=== PATIENT | female | born 1945 | race Caucasian/White ===

== ENCOUNTER → 2017-11-16 14:04 | Outpatient (CLI) | payer MEDICARE, OTHER, SELFPAY ==
[2017-11-16 15:54] LABS: Hematocrit 38.6 % (37-47); Hemoglobin 12.7 g/dl (12.0-15.0); Mean Corp Hgb Conc 32.9 g/gl (32-36); Mean Corpuscular Hgb 31.4 pg (27.0-32.0); Mean Corpuscular Volume 95.5 fL (81-99); Mean Platelet Vol. 9.7 fl (6.2-12.0); Platelet Count 234 K/mm3 (150-450); RBC Distribution Width CV 15.2 % (11.6-14.6); RBC Distribution Width SD 51.8 fl (35.1-43.9); Red Blood Count 4.04 M/mm3 (4.2-5.4); White Blood Count 5.3 K/mm3 (4.4-11.0)
[2017-11-16 15:55] LABS: Scan Indicated on CBC? Y/N NO
[2017-11-16 16:18] LABS: Anion Gap 5 (5-15); BUN 18 mg/dL (7-18); Calcium,Total 9.1 mg/dL (8.5-10.1); Chloride 106 mmol/L (98-107); EST Glomerular Filtration Rate 47 mL/min (>60); Est Glom Filt Rate - Afr Amer 57 mL/min (>60); Glucose 97 mg/dL (74-106); Sodium Level 143 mmol/L (136-145); Thyroid Stim Hormone (TSH) 0.19 uIU/mL (0.358-3.74)
== END ==
PROVIDERS: Family Provider Family Medicine; PCP Family Medicine; Visit Provider Internal Medicine Cardiovascular Disease
DX: R53.83 Other fatigue (principal); I47.1 Supraventricular tachycardia; I25.10 Atherosclerotic heart disease of native coronary artery without angina pectoris
CPT/HCPCS: 36415; 80048; 84443; 85027

== ENCOUNTER → 2017-12-08 13:52 | Outpatient (CLI) | payer MEDICARE, OTHER, SELFPAY ==
[2017-12-08 16:26] LABS: AST(SGOT) 18 U/L (15-37); Alanine Aminotransfer ALT/SGPT 15 U/L (13-56); Albumin, Serum 3.8 g/dL (3.2-5.0); Alkaline Phosphatase 110 U/L (45-117); Cholesterol 146 mg/dL (200); Globulin 3.8 g/dL (2.2-4.2); High Density Lipoprotein 49 mg/dL; Protein, Total 7.6 g/dL (6.4-8.2); Triglycerides 145 mg/dL; Very Low Density Lipoprotein 29 mg/dL (5-40)
== END ==
PROVIDERS: Family Provider Family Medicine; PCP Family Medicine; Visit Provider Internal Medicine Cardiovascular Disease
DX: I25.10 Atherosclerotic heart disease of native coronary artery without angina pectoris (principal)
CPT/HCPCS: 36415; 80061; 80076

== ENCOUNTER → 2017-12-24 15:36 | Outpatient (CLI) | payer MEDICARE, OTHER, SELFPAY ==
--- NOTE | 2017-12-24 15:36 | DT_ITS ---
This patient was seen during an EMR downtime December 20, 2017 - December 27, 2017. This patient may have a combination of paper and electronic documentation or all paper documentation. All documentation is viewable within the e-chart portion of [facility] for each patient visit.
[2017-12-28 16:58] LABS: T4 Total, Thyroxin 6.6 ug/dL (4.8-13.9); Thyroid Stim Hormone (TSH) 2.39 uIU/mL (0.358-3.74)
== END ==
PROVIDERS: Visit Provider Family Medicine
DX: E03.9 Hypothyroidism, unspecified (principal)
CPT/HCPCS: 36415; 84436; 84443; 84481

== ENCOUNTER → 2018-01-24 14:29 | Outpatient (CLI) | payer MEDICARE, OTHER, SELFPAY ==
[2018-01-24 16:36] LABS: Magnesium 1.7 mg/dL (1.6-2.6)
== END ==
PROVIDERS: Family Provider Family Medicine; PCP Family Medicine; Visit Provider Family Medicine
DX: R53.81 Other malaise (principal); R53.83 Other fatigue
CPT/HCPCS: 36415; 83735

== ENCOUNTER → 2018-04-21 16:53 | Outpatient (CLI) | payer MEDICARE, OTHER, SELFPAY ==
[2018-04-21 18:41] LABS: Ferritin 38 ng/mL (8-252); Thyroid Stim Hormone (TSH) 0.97 uIU/mL (0.358-3.74)
== END ==
PROVIDERS: Family Provider Family Medicine; PCP Family Medicine; Referring Provider Internal Medicine Endocrinology, Diabetes & Metabolism; Visit Provider Internal Medicine Endocrinology, Diabetes & Metabolism
DX: E03.8 Other specified hypothyroidism (principal); D50.9 Iron deficiency anemia, unspecified
CPT/HCPCS: 36415; 82728; 84443

== ENCOUNTER → 2018-06-17 12:50 | Outpatient (CLI) | payer MEDICARE, OTHER, SELFPAY ==
[2018-04-29 15:07] VITALS: BMI 43.0
--- NOTE | 2018-06-17 12:52 | RAD_ITS ---
STUDY: X-RAY - LEFT KNEE REASON FOR EXAM: Female, 72 years old. Knee pain TECHNIQUE: 4 view(s) of the knee. COMPARISON: None. FINDINGS: Normal visualized distal femur. Normal visualized proximal tibia and fibula. Normal proximal tibiofibular articulation. Moderate to severe nonuniform joint space narrowing with spur formation involving the medial compartment of the knee. Similar change, to a lesser degree, in the lateral and patellofemoral compartments. There is mild lateral subluxation of the femoral tibial joint. There is a trace amount of knee joint fluid. The soft tissue structures are unremarkable. RAD/Knee 4 or More Views IMPRESSION: Moderate to severe tricompartmental osteoarthritis of the left knee with a medial compartment predominance. Electronically Signed: Cruz Andrew MD at 3:58 EST Tel , Service support ,
--- NOTE | 2018-06-17 12:54 | RAD_ITS ---
STUDY: X-RAY - RIGHT KNEE REASON FOR EXAM: Female, 72 years old. Bilateral knee pain. TECHNIQUE: 5 view(s) of the knee with weightbearing. COMPARISON: None. FINDINGS: Alignment is normal. No fracture or dislocation. Severe medial joint space narrowing and small marginal osteophytes. Minimal marginal osteophytes lateral compartment. Minimal lateral subluxation of the patella with patellofemoral joint space narrowing and lateral marginal osteophytes. The soft tissue structures are unremarkable. RAD/Knee 4 or More Views IMPRESSION: Tricompartmental degenerative changes of the knee with most prominent involvement of the medial compartment and patellofemoral joint. Electronically Signed: Dash Rodriguez MD at 0:58 EST , Service support ,
--- OUTSIDE RECORDS SUMMARY | 2018-08-12 11:44 | XMS RPT_ITS ---
:1945 Author Organization OHIP Support Name Relationship Address Phone MARY JO MONROE Unavailable [address] + [place] [address] R Unavailable Unavailable Unavailable BARCMARY JO Unavailable [address] + [place] [address] R Unavailable Unavailable Unavailable MARY JO MONROE Unavailable [address] + [place] [address] R Unavailable Unavailable Unavailable BARCMARY JO HUGHES Unavailable [address] + [place] [address] R Unavailable Unavailable Unavailable MARY JO MONROE Unavailable [address] + [place] [address] R Unavailable Unavailable Unavailable MARY JO MONROE Unavailable [address] + [place] [address] R Unavailable Unavailable Unavailable MARY JO MONROE Unavailable [address] + [place] [address] R Unavailable Unavailable Unavailable BARCMARY JO HUGHES Unavailable [address] + [place] [address] R Unavailable Unavailable Unavailable MARY JO MONROE Unavailable [address] + [place] [address] R Unavailable Unavailable Unavailable MARY JO MONROE Unavailable [address] + [place] [address] R Unavailable Unavailable Unavailable MARY JO MONROE Unavailable [address] + [place] [address] R Unavailable Unavailable Unavailable MARY JO MONROE Unavailable [address] + [place] [address] R Unavailable Unavailable Unavailable MARY JO MONROE Unavailable [address] + [place] [address] R Unavailable Unavailable Unavailable BARCMARY JO HUGHES Unavailable [address] + [place] [address] R Unavailable Unavailable Unavailable MARY JO MONROE Unavailable [address] + [place] [address] R Unavailable Unavailable Unavailable MARY JO MONROE Unavailable [address] + [place] [address] R Unavailable Unavailable Unavailable Care Team Providers Name Role Phone Mary Jo Morgan Attending Unavailable Jolliff, Marcela Referring Unavailable Jolliff, Marcela Primary Care Unavailable Mary Jo Morgan Attending Unavailable Jolliff, Marcela Primary Care Unavailable Moodispaw, Rashaad Attending Unavailable Mood[place], Rashaad Attending Unavailable [place], Rashaad Referring Unavailable Jolliff, Marcela Primary Care Unavailable [place], Rashaad Attending Unavailable Jolliff, Marcela Referring Unavailable Osullivan, Amparo Attending Unavailable Mood[place], Rashaad Attending Unavailable [place], Rashaad Referring Unavailable Jolliff, Marcela Primary Care Unavailable [place], Rashaad Attending Unavailable Jolliff, Marcela Referring Unavailable Mood[place], Rashaad Attending Unavailable [place], Rashaad Referring Unavailable Jolliff, Marcela Primary Care Unavailable Jolliff, Marcela Attending Unavailable Jolliff, Marcela Attending Unavailable Jolliff, Marcela Primary Care Unavailable Moodisp[place], Rashaad Attending Unavailable Korableva, Lori Attending Unavailable Korableva, Lori Referring Unavailable Jolliff, Marcela Primary Care Unavailable Moodispaw, Rashaad Attending Unavailable Jolliff, Marcela Referring Unavailable Wayt, Venkat Attending Unavailable Jolliff, Marcela Referring Unavailable Wayt, Venkat Attending Unavailable Wayt, Venkat Referring Unavailable Jolliff, Marcela Primary Care Unavailable PROBLEMS PROBLEMS DATE TYPE CONDITION / CODE ATTENDING STATUS SOURCE 06/17/2018 Unknown M25.562 - Pain in left WaytVenkat Active [place] knee / M25.562(ICD-10) [facility] 04/21/2018 Unknown E03.8 - Other Korableva, Active [place] specified [facility] hypothyroidism / Hospital E03.8(ICD-10) Repository 04/21/2018 Unknown D50.9 - Iron Korableva, Active [place] deficiency anemia, [facility] unspecified / Hospital D50.9(ICD-10) Repository 01/24/2018 Unknown R53.81 - Other malaise Marcela Torres Active [place] / R53.81(ICD-10) [facility] Hospital Repository 01/24/2018 Unknown R53.83 - Other fatigue Marcela Torres Active [place] / R53.83(ICD-10) [facility] Hospital Repository 01/13/2018 Unknown E03.9 - Marcela Torres Active [place] Hypothyroidism, [facility] unspecified / Hospital E03.9(ICD-10) Repository 12/08/2017 Unknown I25.10 - Moodispaw, Active [place] Atherosclerotic heart [facility] disease of [place] [facility] coronary artery Repository without angina pectoris / I25.10(ICD-10) 12/03/2017 Unknown I47.1 - Moodispaw, Active [place] Supraventricular [facility] tachycardia / Hospital I47.1(ICD-10) Repository 12/03/2017 Unknown I25.2 - Old myocardial Moodispaw, Active [place] infarction / [facility] I25.2(ICD-10) Hospital Repository 12/03/2017 Unknown Z95.5 - Presence of Moodispaw, Active [place] coronary angioplasty [facility] implant and graft / Hospital Z95.5(ICD-10) Repository 12/03/2017 Unknown I10 - Essential Moodispaw, Active [place] (primary) hypertension [facility] / I10(ICD-10) Hospital Repository 09/09/2017 Unknown R07.9 - Chest pain, Roof, Mary Jo Reed Active [place] unspecified / Community R07.9(ICD-10) Hospital Repository 09/09/2017 Unknown R00.2 - Palpitations / Roof, Mary Jo H Active [place] R00.2(ICD-10) [facility] Hospital Repository PROCEDURES PROCEDURES No Procedure Records FoundRESULTS RESULTS ORTHOPEDIC VISIT Observed: 06/20/2018 Status: F Source: [place] REPORT 3:54 PM [facility] [place] REPOSITORY [facility] [address] [address] OFFICE VISIT Date of Service: 06/17/18 MR#: [id number] Acct: [id number] Name: ERIN CASTILLO Rep #: [id number] : 1945 Provider: MAYA Castillo Age/Sex: 72/F Location: [facility] [place] Status: Signed Intake Intake Visit Reasons: LEFT KNEE Allergies iodine Allergy (Verified 04/29/18 15:07) Unknown naproxen sodium [From Aleve] Allergy (Verified 04/29/18 15:07) Unknown oxytetracycline [From Terramycin] Allergy (Verified 04/29/18 15:07) Unknown oxytetracycline HCl [From Terramycin] Allergy (Verified 04/29/18 15:07) Unknown Sulfa (Sulfonamide Antibiotics) Allergy (Verified 04/29/18 15:07) Unknown Medications ALPRAZolam [Xanax] 0.25 mg PO BID PRN PRN 05/11/13 [History Confirmed 04/29/18] Multivitamins,Therapeutic [Multivitamin] 1 tab PO DAILY 05/11/13 [History Confirmed 04/29/18] Zolpidem Tartrate [Ambien] 10 mg PO QHS 10/29/14 [History Confirmed 04/29/18] lansoprazole 30 mg capsule,delayed release 30 mg PO DAILY #90 cap 08/16/17 [Rx Confirmed 04/29/18] furosemide 20 mg tablet 20 mg PO DAILY PRN 09/07/17 [History Confirmed 04/29/18] isosorbide mononitrate ER 30 mg tablet,extended release 24 hr 30 mg PO .COMPLEX 09/07/17 [History Confirmed 04/29/18] desvenlafaxine succinate ER 100 mg tablet,extended release 24 hr 100 mg PO QDAY 11/18/17 [History Confirmed 04/29/18] hydrochlorothiazide 25 mg tablet 25 mg PO DAILY #90 tab 12/14/17 [Rx Confirmed 04/29/18] potassium chloride ER 20 mEq tablet,extended release(part/cryst) 20 meq PO QDAY #90 tab 01/20/18 [Rx Confirmed 04/29/18] metoprolol tartrate 50 mg tablet 50 mg PO BID #180 tab 02/14/18 [Rx Confirmed 04/29/18] simvastatin 40 mg tablet 40 mg PO QHS #90 tab 03/08/18 [Rx Confirmed 04/29/18] niacin ER 1,000 mg tablet,extended release 24 hr 1,000 mg PO QHS #30 tab 03/31/18 [Rx Confirmed 04/29/18] ascorbic acid (vitamin C) 500 mg tablet 500 mg PO DAILY 04/29/18 [History Confirmed 04/29/18] ferrous sulfate ER 142 mg (45 mg iron) tablet,extended release 300 mg PO DAILY tab 04/29/18 [History Confirmed 04/29/18] nitroglycerin 0.4 mg sublingual tablet 0.4 mg SUBLINGUAL Q5M PRN #25 tab 04/29/18 [Rx Confirmed 04/29/18] levothyroxine 50 mcg tablet 50 mcg PO DAILY 05/26/18 [History] apixaban 5 mg tablet 5 mg PO BID 06/02/18 [History] PFSH Medical History Hypertension (Chronic) Long-term use of high-risk medication (Chronic) Chest pain (Acute) History of myocardial infarction (Chronic) Paroxysmal atrial tachycardia (Chronic) Supraventricular tachycardia (Chronic) Hyperlipidemia (Chronic) Atherosclerotic heart disease of [place] coronary artery without angina pectoris (Chronic) Depression (Acute) Hypothyroidism (Acute) History of hysterectomy (Resolved) History of left heart catheterization (Resolved) Surgical History Presence of stent in coronary artery (Chronic) Postsurgical percutaneous transluminal coronary angioplasty (PTCA) status (Chronic) History of laparoscopic cholecystectomy (Resolved) History of radiofrequency ablation (RFA) procedure for cardiac arrhythmia (Resolved 10/2004) History of tonsillectomy (Resolved) Family History Father Myocardial infarction CAD (coronary artery disease) Mother Cancer Myocardial infarction Sister , age 58 of massive [place] CAD (coronary artery disease) Sudden cardiac Myocardial infarction Sister CAD (coronary artery disease) history of CABG Social History Smoking Status: Never smoker alcohol intake: never substance use type: does not use HPI LEFT KNEE: Details: ERIN CASTILLO is a 72 year old F here today for bilateral knee pain, left greater than right. She has seen Dr Dugan in the past who did a steroid injection and referred her to [facility] for a TKA however she began with cardiac issues and due to her AFIB her surgery was cancelled. She has not returned to [facility] main for any knee related visits. 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 She has been avoiding any situation with excessive walking and just recently shopped in a big store for about a half hour and had discomfort greater than normal that evening. Denies numbness, tingling or other associated symptoms. Ortho Exam Right Knee Swelling: No Homans Sign: No Knee ROM: Yes ROM-Extension -20 to 0 (roughly 5 degrees lax), Yes ROM-Flexion 0-140 Examination: Yes Lat jt line tenderness, Yes Med jt line tenderness, Yes Crepitus, Yes Pain with flexion, No Pain with extention, Yes La's Test Stability: NML: Anterior Drawer, NML: Valgus 30, NML: Varus 30 Patella Grind: Yes KNEE: Upon examination of right knee, patient has mild laxity and slight joint space opening medial/lateral with both valgus and varus stress. Left Knee Swelling: No Knee ROM: No ROM-Extension -20 to 0 (roughly 5 degrees lax), Yes ROM-Flexion 0-140 Examination: Yes med jt line tenderness, Yes Lat jt line tenderness, Yes Crepitus, Yes Pain with flexion, Yes La's Test, No TTP inf pole patella Stability: NML: Anterior Drawer Popliteal Adenopathy: No Patella Grind: Yes KNEE: Upon examination of left knee, patient has mild laxity and slight joint space opening medial/lateral with both valgus and varus stress. Assessment AND Plan Problems 1. Arthritis of both knees M17.0 Plan Obtained Xrays of patient's bilateral knees. Personally reviewed Xrays. There is no obvious fracture, dislocation, or lucency noted. She has evident moderate to severe tri-compartmental arthritis of the knee. Patient's examination along with her x-rays really point to tricompartmental arthritis is being the cause of her pain/problems. As bad as the x-rays look she really has very minimal pain she states but she does feel unstable in the knee with occasionally the knee giving out. She continues to be very active to help stabilize the knee. She does not wish to have injections as she really does not have a lot of pain at this time. The braces have helped her in the past providing support so she does not feel so unstable and at this time would like to go ahead and see about getting fitted for bilateral knee braces to be worn while she is physically active to help with instability. We discussed continual exercise at home which she is going to continue to do. She can ice, take anti-inflammatories, and use topical remedies for pain relief. She is to notify the office of any injuries, worsening pains, or any other new concerns or complaints. Orders Orders: Plan Detail Follow Up 3 Months Coding Level of Care Code Off vis,est,level 3 Diagnoses Arthritis of both knees M17.0 06/20/18 6340 <Electronically signed by Venkat TREJO> Date Venkat TREJO Cosigner Signature: Date (if applicable) CC: KNEE 4 OR MORE Observed: 06/17/2018 Status: F Source: [place] VIEWS 12:54 PM [facility] REPOSITORY [facility] Imaging Services [address] [place] [address] Knee 4 or More Views MR#: [id number] Acct: [id number] Name: ERIN CASTILLO Rep #: [id number] : 1945 F 72 From: Dash Rodriguez PCP: Marcela Torres MD Status: REG CLI Study: Knee 4 or More Views Date of Exam: 06/17/18 Exam# [id number] Ordering Dr: Venkat Castillo STUDY: X-RAY - RIGHT KNEE REASON FOR EXAM: Female, 72 years old. Bilateral knee pain. TECHNIQUE: 5 view(s) of the knee with weightbearing. COMPARISON: None. FINDINGS: Alignment is normal. No fracture or dislocation. Severe medial joint space narrowing and small marginal osteophytes. Minimal marginal osteophytes lateral compartment. Minimal lateral subluxation of the patella with patellofemoral joint space narrowing and lateral marginal osteophytes. The soft tissue structures are unremarkable. RAD/Knee 4 or More Views IMPRESSION: Tricompartmental degenerative changes of the knee with most prominent involvement of the medial compartment and patellofemoral joint. Electronically Signed: Dash Rodriguez MD at 0:58 EST , Service support , CC: MAYA Castillo; Marcela Torres MD Customer Experience Strategist: Signed KNEE 4 OR MORE Observed: 06/17/2018 Status: F Source: [place] VIEWS 12:52 PM [facility] REPOSITORY [facility] Imaging Services [address] [place] [address] Knee 4 or More Views MR#: [id number] Acct: [id number] Name: ERIN CASTILLO Rep #: [id number] : 1945 F 72 From: Cruz Andrew MD PCP: Marcela Torres MD Status: REG CLI Study: Knee 4 or More Views Date of Exam: 06/17/18 Exam# [id number] Ordering Dr: Venkat Castillo STUDY: X-RAY - LEFT KNEE REASON FOR EXAM: Female, 72 years old. Knee pain TECHNIQUE: 4 view(s) of the knee. COMPARISON: None. FINDINGS: Normal visualized distal femur. Normal visualized proximal tibia and fibula. Normal proximal tibiofibular articulation. Moderate to severe nonuniform joint space narrowing with spur formation involving the medial compartment of the knee. Similar change, to a lesser degree, in the lateral and patellofemoral compartments. There is mild lateral subluxation of the femoral tibial joint. There is a trace amount of knee joint fluid. The soft tissue structures are unremarkable. RAD/Knee 4 or More Views IMPRESSION: Moderate to severe tricompartmental osteoarthritis of the left knee with a medial compartment predominance. Electronically Signed: Cruz Andrew MD at 3:58 EST Tel , Service support , CC: MAYA Castillo; Marcela Torres MD Customer Experience Strategist: Signed CARDIOLOGY VISIT Observed: 04/29/2018 Status: F Source: [place] REPORT 4:15 PM [facility] REPOSITORY [facility] [address] [place] [address] OFFICE VISIT Date of Service: 04/29/18 MR#: [id number] Acct: [id number] Name: ERIN CASTILLO Rep #: [id number] : 1945 Provider: Rashaad Hall MD Age/Sex: 72/F [place] [facility] Status: Signed HPI HPI Details: ERIN CASTILLO, is a 72 F who presents to the office today for outpatient cardiovascular follow-up. She notes overall, at the present time, from a cardiovascular standpoint, she is doing well. She is not describing symptoms of ongoing angina pectoris. She has not had the use of nitroglycerin sublingual. She has not had any symptoms suspicious for acute CHF or pulmonary edema. She does note occasional palpitations and she occasionally takes an extra metoprolol tablet-PRN. She notes this works well for her additional palpitations and has allowed her not to have to present to the hospital for further evaluation. There is been no near syncope or syncope. She is currently seeing an psych arnp from the [place], [place] area. She states she still may need future knee replacement surgery although she is still considering the possibility of stem cell therapy. Intake Vital Signs04/29/18 Height 5 ft 3 in 04/29/18 Weight: 243 lb 04/29/18 Body Mass Index (BMI) 43.0 Intake Visit Reasons: 3 M FU rs from 03-25-18 Allergies iodine Allergy (Verified 04/29/18 15:07) Unknown naproxen sodium [From Aleve] Allergy (Verified 04/29/18 15:07) Unknown oxytetracycline [From Terramycin] Allergy (Verified 04/29/18 15:07) Unknown oxytetracycline HCl [From Terramycin] Allergy (Verified 04/29/18 15:07) Unknown Sulfa (Sulfonamide Antibiotics) Allergy (Verified 04/29/18 15:07) Unknown Medications ALPRAZolam [Xanax] 0.25 mg PO BID PRN PRN 05/11/13 [History Confirmed 04/29/18] Multivitamins,Therapeutic [Multivitamin] 1 tab PO DAILY 05/11/13 [History Confirmed 04/29/18] Zolpidem Tartrate [Ambien] 10 mg PO QHS 10/29/14 [History Confirmed 04/29/18] lansoprazole 30 mg capsule,delayed release 30 mg PO DAILY #90 cap 08/16/17 [Rx Confirmed 04/29/18] furosemide 20 mg tablet 20 mg PO DAILY PRN 09/07/17 [History Confirmed 04/29/18] isosorbide mononitrate ER 30 mg tablet,extended release 24 hr 30 mg PO .COMPLEX 09/07/17 [History Confirmed 04/29/18] apixaban 5 mg tablet 5 mg PO BID #60 tab 09/22/17 [Rx Confirmed 04/29/18] desvenlafaxine succinate ER 100 mg tablet,extended release 24 hr 100 mg PO QDAY 11/18/17 [History Confirmed 04/29/18] levothyroxine 75 mcg tablet 75 mcg PO .COMPLEX 11/18/17 [History Confirmed 04/29/18] hydrochlorothiazide 25 mg tablet 25 mg PO DAILY #90 tab 12/14/17 [Rx Confirmed 04/29/18] potassium chloride ER 20 mEq tablet,extended release(part/cryst) 20 meq PO QDAY #90 tab 01/20/18 [Rx Confirmed 04/29/18] metoprolol tartrate 50 mg tablet 50 mg PO BID #180 tab 02/14/18 [Rx Confirmed 04/29/18] simvastatin 40 mg tablet 40 mg PO QHS #90 tab 03/08/18 [Rx Confirmed 04/29/18] niacin ER 1,000 mg tablet,extended release 24 hr 1,000 mg PO QHS #30 tab 03/31/18 [Rx Confirmed 04/29/18] ascorbic acid (vitamin C) 500 mg tablet 500 mg PO DAILY 04/29/18 [History Confirmed 04/29/18] ferrous sulfate ER 142 mg (45 mg iron) tablet,extended release 300 mg PO DAILY tab 04/29/18 [History Confirmed 04/29/18] nitroglycerin 0.4 mg sublingual tablet 0.4 mg SUBLINGUAL Q5M PRN #25 tab 04/29/18 [Rx Confirmed 04/29/18] [facility] Medical History Hypertension (Chronic) Long-term use of high-risk medication (Chronic) Chest pain (Acute) History of myocardial infarction (Chronic) Paroxysmal atrial tachycardia (Chronic) Supraventricular tachycardia (Chronic) Hyperlipidemia (Chronic) Atherosclerotic heart disease of [place] coronary artery without angina pectoris (Chronic) Depression (Acute) Hypothyroidism (Acute) History of hysterectomy (Resolved) History of left heart catheterization (Resolved) Surgical History Presence of stent in coronary artery (Chronic) Postsurgical percutaneous transluminal coronary angioplasty (PTCA) status (Chronic) History of laparoscopic cholecystectomy (Resolved) History of radiofrequency ablation (RFA) procedure for cardiac arrhythmia (Resolved 10/2004) History of tonsillectomy (Resolved) Family History Father Myocardial infarction CAD (coronary artery disease) Mother Cancer Myocardial infarction Sister , age 58 of massive [place] CAD (coronary artery disease) Sudden cardiac Myocardial infarction Sister CAD (coronary artery disease) history of CABG Social History Smoking Status: Never smoker alcohol intake: never substance use type: does not use ROS Const Const: Positive for fatigue (continues, improving); negative for weakness, weight gain, weight loss, frequent falls or excessive sweating Eyes Eyes: Negative for change in vision, blurry vision or transient loss of vision ENT ENT: Positive for balance problems (increased off balance; medication induced ambien); negative for dizziness Cardio Chest Pain: No Palpitations: Yes (occasional; brief duration) feels like its: fast Edema: None Muscle aches with walking: None Resp Respiratory: Negative for SOB with activity or SOB at rest GI GI: Negative vomiting or vomiting blood/hematemesis : Negative for hematuria Musc Musc: Positive for balance problems (increased off balance; medication induced ambien), muscle weakness (Bilat) and muscle aches/ myalgia (Lt knee pain); negative for joint pain Skin Skin: Negative non-healing lesions or rash Neuro Neuro: Negative for weakness, blurry vision, dizziness, lightheadedness, frequent falls or orthostatic symptoms Ajit Hematologic/Lymphatic: Negative for easy bleeding Endo Endo: Positive for fatigue (continues, improving); negative for excessive sweating Psych Psych: Negative for anxiety or depression Allergy Allergy/Immunology: Negative for hives, Negative for rash Cardiology Exam Const Appearance: cooperative, healthy appearing, comfortable, no acute distress, well developed and well groomed Nutritional Appearance: obese Orientation: alert, awake and oriented x3 Head Head: normal to inspection, normocephalic and atraumatic Ears: hearing grossly normal bilaterally Nose: external nose normal Face and Sinus: face symmetric Mouth: oral mucosae normal Teeth and gingiva: fair dentition Eyes Eyelids: eyelids normal Conjunctivae: conjunctivae normal Pupils: PERRL EOM: EOM intact bilaterally Neck Neck: normal visual inspection and full ROM Carotids: normal carotid upstroke Chest Chest inspection: normal inspection of the chest and symmetric chest movement Auscultation: Bilateral: Clear to Auscultation Cardio Rate: regular rate Rhythm: regular rhythm Heart sounds: S1 normal, S2 normal and positive S4 (LLSB systolic ); negative rub or gallop Murmur: Grade 2/6, mid systolic, LLSB and LVOT GI GI: obese, normal to inspection, bowel sounds present and soft Neuro General: alert, awake, oriented x3 and moves all extremities Skin Skin: no rashes or lesions noted Extremities Pulses: Normal: Right Radial Pulse, Left Radial Pulse Lower Extremity Edema: None: Bilateral Musculoskel Musculoskeletal: joint tenderness (knee) Psych Psychological: depressed Supplemental Info Her last transthoracic echocardiogram was on 04/13/2017. The results are as noted below. Interpretation Summary The study was technically difficult. Segmental dysfunction with preserved ejection fraction (see wall motion). The estimated ejection fraction is 60 %. The left atrium is mildly enlarged. Trivial mitral valve insufficiency. Trivial tricuspid valve insufficiency. Right ventricular systolic pressure estimated to be 27 mmHg. Transmitral diastolic flow velocities suggest diastolic dysfunction (pseudonormal pattern). Her last exercise tolerance test/imaging study was also performed on 04/13/2017. This was a pharmacologic stress nuclear imaging study. The nuclear image results are as noted below. Impression: 1. Rest and stress SPECT Cardiolite nuclear imaging demonstrating the appearance of relative uniform tracer uptake and myocardial perfusion appearing within normal limits. 2. The gated Cardiolite study reports an LVEF of 69%. Her last diagnostic cardiac catheterization was performed on 12/31/2015 at [facility]. The final impression is as noted below. Final impression: 1. Mild elevation of left ventricular diastolic pressure 2. Left ventricle: A. Normal left trigger size, wall motion, and systolic function B. Estimated LVEF of 60% 3. Left main coronary artery: A. Distal 10-25% eccentric appearing calcification and stenosis 4. Left anterior descending coronary artery: A. Proximal to mid to distal stented segment patent with minimal luminal irregularities 5. Left circumflex coronary artery: A. Proximal 25% eccentric appearing calcification with 25% eccentric appearing stenosis B. 2nd small OM demonstrating pre-bifurcation 75-95% appearing stenosis in the superior bifurcating [id number] proximal 50-75% appearing stenosis 6. Right coronary artery: A. Large dominant vessel B. Proximal to mid to towards distal stented segment patent with minimal luminal irregularities A previous Holter monitor from 01/08/2012 is as noted below. 24 HOUR HOLTER MONITOR There were 69,834 QRS complexes noted. The average heart rate was 49 beats per minute in sinus rhythm. Ventricular ectopic beats were noted comprising 0.6% of total QRS complexes. The minimum heart rate was 40 beats per minute recorded at 1:12 p.m. The maximum heart rate was 81 beats per minute recorded at 1:32 p.m. There were occasional short runs of supraventricular tachyarrhythmia noted, which were more atrial tachycardia beats. The longest was a 7 beat run with the fastest being 121 beats per minute. The patient kept a diary noting fatigue and weakness. The above correlated with sinus bradycardia only. CONCLUSION 24 hour Holter monitor demonstrating predominantly sinus bradycardia. Occasional premature atrial complex and ventricular complexes are noted. Her previous event monitor from August to September of this year demonstrated sinus rhythm with PACs, PVCs, and paroxysmal atrial fibrillation/flutter. Assessment AND Plan 1. Atherosclerosis of [place] coronary artery of [place] heart without angina pectoris I25.10 PTCA of the LAD in December 2007; PTCA/Stent of the prox LAD, mid LAD, diagonal 1 in January 2008; 08-01-2008 PTCA/stent to PDA, Cutting Balloon to LAD, PTCA with stent to RCA, cutting balloon to the distal stent LAD in July 2008 Plan At the present time she appears to be doing reasonably well with no acute symptoms with respect to her under coronary artery disease process. Thus she will continue risk factor modification and medical management 2. Presence of stent in coronary artery Z95.5 JCARLOS to LAD 02/2003; Cutting Balloon to OM and Circ 10/31/04; LHC 06/2005; December 2007; June 2008; IVUS of LAD 12/2007; PTCA of the LAD and intracoronary stent December 2007; PTCA of the LAD, proximal and mid, Diagonal1 with stent 02/14/08; 08/01/08 PTCA and stent to PDA, cutting balloon to distal stent of LAD, PTCA with stent to RCA; [facility] October 2009, 05/2011, April 2013, 12/31/15 Plan She has a history of previous multivessel PCI as noted above. Again she appears to be doing well at the present time. She will continue her medical therapy and follow-up 3. Paroxysmal atrial tachycardia I47.1 Plan She does have a history of previous PSVT/PAT. She is undergone ablative therapy in the past. She does have occasional palpitations and ectopy. She has done well with additional as needed beta-mili use. She will continue this approach for the time being. 4. Hyperlipidemia, unspecified hyperlipidemia type E78.5 Plan Her lipid labs from November of this year were reviewed. They appear to be under good control. Thus she will continue her current medical management and follow-up. 5. Hypertension, unspecified type I10 Plan Her blood pressure appears to be reasonably well-controlled at the present time. Again she will continue her medical therapy and follow-up. 6. Long-term use of high-risk medication Z79.899 Plan She will continue medical management. Over time her appropriate laboratory studies will be followed. Plan Detail Other Medications New: Refilled: Additional Comments Thank you for allowing me to participate in the care of your patient. Please don't hesitate to call if any issues arise. This note was generated using a voice recognition system and there may be incorrect words, spelling or punctuation that were not noted when reviewing the office note prior to saving. Follow Up 6 Months (PFM) Coding Level of Care Code Off vis,est,level 3 Diagnoses Atherosclerosis of [place] coronary artery of [place] heart without angina pectoris I25.10 [place] vs. transplanted heart: [place] heart Presence of stent in coronary artery Z95.5 Paroxysmal atrial tachycardia I47.1 Hyperlipidemia, unspecified hyperlipidemia type E78.5 Hyperlipidemia type: unspecified Hypertension, unspecified type I10 Hypertension type: unspecified Long-term use of high-risk medication Z79.899 Coding Level of Care Code Off vis,est,level 3 Diagnoses Atherosclerosis of [place] coronary artery of [place] heart without angina pectoris I25.10 [place] vs. transplanted heart: [place] heart Presence of stent in coronary artery Z95.5 Paroxysmal atrial tachycardia I47.1 Hyperlipidemia, unspecified hyperlipidemia type E78.5 Hyperlipidemia type: unspecified Hypertension, unspecified type I10 Hypertension type: unspecified Long-term use of high-risk medication Z79.899 04/29/18 1615 <Electronically signed by Rashaad Hall MD> Date Rashaad Hall MD Cosigner Signature: Date (if applicable) CC: Marcela Torres MD THYROID STIM HORMONE Collected: 04/21/2018 Status: F Source: [place] (TSH) 5:00 PM [facility] [place] REPOSITORY TYPE CODE TESTS RESULT OUT OF RANGE REFERENCE UNITS LAB L501.9520 0.358-3.74 uIU/mL Normal TSH 0.97 Performed By: #### L501.9520, L503.6550 #### [facility] [address] [place], [place], [address] FERRITIN Collected: 04/21/2018 Status: F Source: [place] 5:00 PM [facility] [place] REPOSITORY TYPE CODE TESTS RESULT OUT OF RANGE REFERENCE UNITS LAB L503.6550 8-252 ng/mL Normal FERRITIN 38 Performed By: #### L501.9520, L503.6550 #### [facility] [address] [place], [address] MAGNESIUM Collected: 01/24/2018 Status: F Source: [place] 2:33 PM [facility] [place] REPOSITORY TYPE CODE TESTS RESULT OUT OF RANGE REFERENCE UNITS LAB L501.5200 1.6-2.6 mg/dL Normal MG 1.7 Performed By: #### L501.5200 #### [facility] [address] [place], [address] DOWNTIME REPORT Observed: 01/06/2018 Status: F Source: [place] 1:40 PM [facility] Medical Records Department [address] [place] [address] Downtime Report MR#: [id number] Acct: [id number] Name: ERIN CASTILLO Rep #: [id number] : 1945 72 From: Georges Bernard PCP: Status: REG CLI This patient was seen during an EMR downtime December 20, 2017 - December 27, 2017. This patient may have a combination of paper and electronic documentation or all paper documentation. All documentation is viewable within the e-chart portion of August for each patient visit. FREE T3 Collected: 12/24/2017 Status: F Source: [place] 3:36 PM [facility] [place] REPOSITORY Order Comment: RESULT(S) PREVIOUSLY REPORTED ON MANUAL REQUISITION DURING DOWNTIME. TYPE CODE TESTS RESULT OUT OF RANGE REFERENCE UNITS LAB L501.82546 2.18-3.98 pg/mL Low FREE T3 2.0 Performed By: #### L501.23753, L501.9310, L501.9520 #### [facility] [address] [facility] [place], [address] T4 TOTAL, THYROXIN Collected: 12/24/2017 Status: F Source: [place] 3:36 PM [facility] [place] REPOSITORY Order Comment: RESULT(S) PREVIOUSLY REPORTED ON MANUAL REQUISITION DURING DOWNTIME. TYPE CODE TESTS RESULT OUT OF RANGE REFERENCE UNITS LAB L501.9310 4.8-13.9 ug/dL T4 Normal THYROXIN 6.6 Performed By: #### L501.14859, L501.9310, L501.9520 #### [facility] [address] [facility]. [place], [place], [address] THYROID STIM HORMONE Collected: 12/24/2017 Status: F Source: [place] (TSH) 3:36 PM [facility] [place] REPOSITORY Order Comment: RESULT(S) PREVIOUSLY REPORTED ON MANUAL REQUISITION DURING DOWNTIME. TYPE CODE TESTS RESULT OUT OF RANGE REFERENCE UNITS LAB L501.9520 0.358-3.74 uIU/mL Normal TSH 2.39 Performed By: #### L501.06813, L501.9310, L501.9520 #### [facility] [address] [facility] [place], [place], [address] LIVER PROFILE Collected: 12/08/2017 Status: F Source: [place] 2:00 PM [facility] [place] REPOSITORY TYPE CODE TESTS RESULT OUT OF RANGE REFERENCE UNITS LAB L501.1500 6.4-8.2 g/dL Normal T PROT 7.6 LAB L501.1800 3.2-5.0 g/dL Normal ALB 3.8 LAB L501.1950 2.2-4.2 g/dL Normal GLOB 3.8 LAB L501.4100 15-37 U/L Normal AST 18 LAB L501.4305 45-117 U/L Normal ALK P 110 LAB L501.4405 13-56 U/L Normal ALT 15 LAB L501.4600 0.20-1.00 mg/dL Normal T BILI 0.40 LAB L501.4700 0.00-0.30 mg/dL Normal D BILI 0.10 Performed By: #### L500.3400, L500.4100 #### [facility] [address] [place] [address], [id number] LIPID PROFILE Collected: 12/08/2017 Status: F Source: [place] 2:00 [facility] REPOSITORY TYPE CODE TESTS RESULT OUT OF RANGE REFERENCE UNITS LAB L501.4900 200 mg/dL Normal CHOL 146 Result Comment: <200 mg/dL Desirable 200-240 mg/dL Borderline >240 mg/dL High Risk LAB L501.5000 mg/dL Normal TRIG 145 Result Comment: The drugs N-Acetylcysteine and Metamizole may falsely depress this assay. Serum Triglycerides Reference Interval Normal <150 mg/dL Borderline high 150 - 199 mg/dL High 200 - 499 mg/dL Very High > or = 500 mg/dL LAB L501.6400 mg/dL Normal HDL 49 Result Comment: The drugs N-Acetylcysteine and Metamizole may falsely depress this assay. Reference Range HDL <40 mg/dL Low HDL Cholesterol HDL >or= 60 mg/dL High HDL Cholesterol LAB L501.6500 0-130 mg/dL Normal LDL 68 LAB L501.6600 5-40 mg/dL Normal VLDL 29 Performed By: #### L500.3400, L500.4100 #### [facility] [address] [place], [address] CARDIOLOGY VISIT Observed: 12/03/2017 Status: F Source: [place] REPORT 12:06 PM [facility] REPOSITORY [facility] [address] [place] [place] [address] OFFICE VISIT Date of Service: 12/03/17 MR#: [id number] Acct: [id number] Name: ERIN CASTILLO Rep #: [id number] : 1945 Provider: Rashaad Hall MD Age/Sex: 72/F Location: [facility] Status: Signed HPI HPI Details: ERIN CASTILLO, is a 72 F who presents to the office today for for outpatient cardiovascular follow-up of her history of CAD status post OK-remote status post PTCA/stent-remote, supraventricular tachydysrhythmia status post EPS/RFA at [facility], hyperlipidemia, and hypertension who presents for concerns of her underlying cardiac ectopy, feeling sluggish and fatigued, and need for upcoming knee stem cell therapy versus replacement therapy. She has undergone extensive noninvasive and invasive cardiovascular evaluation in the past. Most recently in October of this year she underwent an event monitor which demonstrated sinus rhythm with PACs PVCs and episodes compatible with atrial fibrillation/flutter. She has had rate control therapy adjustment and anticoagulant therapy. She states on her higher dose beta-blockers, add metoprolol tartrate 100 mg twice daily, she felt very tired and sluggish and fatigued. Thus she has decreased her morning dose down to 50 mg and her evening dose has remained at 100 mg. She still feels tired and sluggish and fatigued. She underwent laboratory profile on 11/16/2017 which demonstrated no evidence of ongoing anemia, electrolyte dysfunction, or renal dysfunction to explain her symptoms. It was noted her TSH level was low at 0.19. She has been evaluated by her primary care physician who has adjusted her thyroid supplement. She states she is pending a follow-up visit and a follow-up thyroid hormone level. She states she has not had any other issues with respect to ongoing chest discomfort suspicious for angina pectoris. She is not using nitroglycerin sublingual at this time. She has been no evidence of CHF or pulmonary edema. There has been no loss of consciousness. Intake Vital Signs12/03/17 Height 5 ft 3 in 12/03/17 Weight: 239 lb 12/03/17 Body Mass Index (BMI) 42.3 12/03/17 Blood Pressure 100/68 Intake Visit Reasons: 6 M FU Allergies iodine Allergy (Verified 12/03/17 10:14) Unknown naproxen sodium [From Aleve] Allergy (Verified 12/03/17 10:14) Unknown oxytetracycline [From Terramycin] Allergy (Verified 12/03/17 10:14) Unknown oxytetracycline HCl [From Terramycin] Allergy (Verified 12/03/17 10:14) Unknown Sulfa (Sulfonamide Antibiotics) Allergy (Verified 12/03/17 10:14) Unknown Medications ALPRAZolam [Xanax] 0.25 mg PO BID PRN PRN 05/11/13 [History Confirmed 12/03/17] Hydrochlorothiazide [Hctz] 25 mg PO DAILY 05/11/13 [History Confirmed 12/03/17] Multivitamins,Therapeutic [Multivitamin] 1 tab PO DAILY 05/11/13 [History Confirmed 12/03/17] Niacin SA [Niaspan] 1,000 mg PO QHS 05/11/13 [History Confirmed 12/03/17] Simvastatin [Zocor] 40 mg PO QHS 05/11/13 [History Confirmed 12/03/17] Zolpidem Tartrate [Ambien] 10 mg PO QHS 10/29/14 [History Confirmed 12/03/17] nitroglycerin 0.4 mg sublingual tablet 0.4 mg SUBLINGUAL Q5M PRN 06/30/17 [History Confirmed 12/03/17] potassium chloride ER 20 mEq tablet,extended release(part/cryst) 20 meq PO QDAY 06/30/17 [History Confirmed 12/03/17] lansoprazole 30 mg capsule,delayed release 30 mg PO DAILY #90 cap 08/16/17 [Rx Confirmed 12/03/17] furosemide 20 mg tablet 20 mg PO DAILY PRN 09/07/17 [History Confirmed 12/03/17] isosorbide mononitrate ER 30 mg tablet,extended release 24 hr 30 mg PO .COMPLEX 09/07/17 [History Confirmed 12/03/17] apixaban 5 mg tablet 5 mg PO BID #60 tab 09/22/17 [Rx Confirmed 12/03/17] desvenlafaxine succinate ER 100 mg tablet,extended release 24 hr 100 mg PO QDAY 11/18/17 [History Confirmed 12/03/17] levothyroxine 75 mcg tablet 75 mcg PO .COMPLEX 11/18/17 [History Confirmed 12/03/17] metoprolol tartrate 50 mg tablet 50 mg PO .COMPLEX 12/03/17 [History Confirmed 12/03/17] [facility] Medical History Presence of stent in coronary artery (Chronic) Hypertension (Chronic) Long-term use of high-risk medication (Chronic) Chest pain (Acute) History of myocardial infarction (Chronic) Paroxysmal atrial tachycardia (Chronic) Supraventricular tachycardia (Chronic) Hyperlipidemia (Chronic) Atherosclerotic heart disease of [place] coronary artery without angina pectoris (Chronic) Depression (Acute) Hypothyroidism (Acute) History of left heart catheterization (Resolved) Surgical History Postsurgical percutaneous transluminal coronary angioplasty (PTCA) status (Chronic) History of hysterectomy (Resolved) History of laparoscopic cholecystectomy (Resolved) History of radiofrequency ablation (RFA) procedure for cardiac arrhythmia (Resolved 10/2004) History of tonsillectomy (Resolved) Family History Father Myocardial infarction CAD (coronary artery disease) Mother Cancer Myocardial infarction Sister , age 58 of massive [place] CAD (coronary artery disease) Sudden cardiac Myocardial infarction Sister CAD (coronary artery disease) history of CABG Social History Smoking Status: Never smoker alcohol intake: never substance use type: does not use ROS Const Const: Positive for fatigue (very tired all of the time); negative for weakness, weight gain, weight loss, frequent falls or excessive sweating Eyes Eyes: Negative for change in vision, blurry vision or transient loss of vision ENT ENT: Positive for balance problems (unsteadiness with ambulation, knee replacment on hold; off balance); negative for dizziness Cardio Chest Pain: Yes Character: other (pressure) Onset: at rest Duration: minutes (20 minutes to an hour) Exacerbation: activity Palpitations: Yes (occasional) feels like its: fast, pounding, thumping Edema: Bilateral (slight) Muscle aches with walking: None Resp Respiratory: Positive for SOB with activity and SOB at rest Additional Details: occasional dry cough GI GI: Negative vomiting or vomiting blood/hematemesis : Negative for hematuria Musc Musc: Positive for balance problems (unsteadiness with ambulation, knee replacment on hold; off balance) and muscle weakness (with ambulation); negative for muscle aches/ myalgia or joint pain Skin Skin: Negative non-healing lesions or rash Neuro Neuro: Negative for weakness, blurry vision, dizziness, lightheadedness, frequent falls or orthostatic symptoms Ajit Hematologic/Lymphatic: Negative for easy bleeding Endo Endo: Positive for fatigue (very tired all of the time); negative for excessive sweating Psych Psych: Negative for anxiety or depression Allergy Allergy/Immunology: Negative for hives, Negative for rash Cardiology Exam Const Appearance: cooperative, healthy appearing, comfortable and no acute distress Nutritional Appearance: obese Orientation: alert, awake and oriented x3 Head Head: normal to inspection, normocephalic and atraumatic Ears: hearing grossly normal bilaterally Nose: external nose normal Face and Sinus: face symmetric Mouth: oral mucosae normal Teeth and gingiva: fair dentition Eyes Eyelids: eyelids normal Conjunctivae: conjunctivae normal Pupils: PERRL EOM: EOM intact bilaterally Neck Neck: normal visual inspection and full ROM Carotids: normal carotid upstroke Chest Chest inspection: normal inspection of the chest and symmetric chest movement Auscultation: Bilateral: Clear to Auscultation Cardio Rate: regular rate Rhythm: regular rhythm Heart sounds: S1 normal, S2 normal and positive S4 (LLSB systolic ); negative rub or gallop Murmur: Grade 2/6, mid systolic, LLSB and LVOT GI GI: obese, normal to inspection, soft, no hepatosplenomegaly and bowel sounds present Neuro General: alert, awake, oriented x3 and moves all extremities Skin Skin: no rashes or lesions noted Extremities Pulses: Normal: Right Radial Pulse, Left Radial Pulse Lower Extremity Edema: None: Bilateral Musculoskel Musculoskeletal: joint tenderness (knee) Psych Psychological: depressed Supplemental Info Her last transthoracic echocardiogram was on 04/13/2017. The results are as noted below. Interpretation Summary The study was technically difficult. Segmental dysfunction with preserved ejection fraction (see wall motion). The estimated ejection fraction is 60 %. The left atrium is mildly enlarged. Trivial mitral valve insufficiency. Trivial tricuspid valve insufficiency. Right ventricular systolic pressure estimated to be 27 mmHg. Transmitral diastolic flow velocities suggest diastolic dysfunction (pseudonormal pattern). Her last exercise tolerance test/imaging study was also performed on 04/13/2017. This was a pharmacologic stress nuclear imaging study. The nuclear image results are as noted below. Impression: 1. Rest and stress SPECT Cardiolite nuclear imaging demonstrating the appearance of relative uniform tracer uptake and myocardial perfusion appearing within normal limits. 2. The gated Cardiolite study reports an LVEF of 69%. Her last diagnostic cardiac catheterization was performed on 12/31/2015 at [facility]. The final impression is as noted below. Final impression: 1. Mild elevation of left ventricular diastolic pressure 2. Left ventricle: A. Normal left trigger size, wall motion, and systolic function B. Estimated LVEF of 60% 3. Left main coronary artery: A. Distal 10-25% eccentric appearing calcification and stenosis 4. Left anterior descending coronary artery: A. Proximal to mid to distal stented segment patent with minimal luminal irregularities 5. Left circumflex coronary artery: A. Proximal 25% eccentric appearing calcification with 25% eccentric appearing stenosis B. 2nd small OM demonstrating pre-bifurcation 75-95% appearing stenosis in the superior bifurcating [id number] proximal 50-75% appearing stenosis 6. Right coronary artery: A. Large dominant vessel B. Proximal to mid to towards distal stented segment patent with minimal luminal irregularities A previous Holter monitor from 01/08/2012 is as noted below. 24 HOUR HOLTER MONITOR There were 69,834 QRS complexes noted. The average heart rate was 49 beats per minute in sinus rhythm. Ventricular ectopic beats were noted comprising 0.6% of total QRS complexes. The minimum heart rate was 40 beats per minute recorded at 1:12 p.m. The maximum heart rate was 81 beats per minute recorded at 1:32 p.m. There were occasional short runs of supraventricular tachyarrhythmia noted, which were more atrial tachycardia beats. The longest was a 7 beat run with the fastest being 121 beats per minute. The patient kept a diary noting fatigue and weakness. The above correlated with sinus bradycardia only. CONCLUSION 24 hour Holter monitor demonstrating predominantly sinus bradycardia. Occasional premature atrial complex and ventricular complexes are noted. Her previous event monitor from August to September of this year demonstrated sinus rhythm with PACs, PVCs, and paroxysmal atrial fibrillation/flutter. Assessment AND Plan 1. Atherosclerosis of [place] coronary artery of [place] heart without angina pectoris I25.10 PTCA of the LAD in December 2007; PTCA/Stent of the prox LAD, mid LAD, diagonal 1 in January 2008; 08-01-2008 PTCA/stent to PDA, Cutting Balloon to LAD, PTCA with stent to RCA, cutting balloon to the distal stent LAD in July 2008 Plan At the present time she appears to be without any ongoing symptoms of angina pectoris. She will continue risk factor modification and medical management. It was not felt she required further cardiac diagnostic studies or therapeutic intervention at this time. Orders Orders: 2. Presence of stent in coronary artery Z95.5 JCARLOS to LAD 02/2003; Cutting Balloon to OM and Circ 10/31/04; [facility] 06/2005; December 2007; June 2008; IVUS of LAD 12/2007; PTCA of the LAD and intracoronary stent December 2007; PTCA of the LAD, proximal and mid, Diagonal1 with stent 02/14/08; 08/01/08 PTCA and stent to PDA, cutting balloon to distal stent of LAD, PTCA with stent to RCA; [facility] October 2009, 05/2011, April 2013, 12/31/15 Plan Again she has had a history of previous PCI as noted above. Her most recent noninvasive studies did not suggest ongoing myocardial ischemia. Thus she has not required repeat diagnostic cardiac catheterization since 2015. She will continue risk factor modification and medical management. Orders Orders: 3. Paroxysmal atrial tachycardia I47.1 Plan She has had a history of paroxysmal atrial tachycardia. She has undergone previous EPS/RFA at [facility]. She has been on medical management with beta blockers. Most recently it appears she has had evidence of paroxysmal atrial fibrillation/flutter. Today she had an ECG. She was in sinus rhythm/sinus bradycardia. Orders Orders: 4. Atrial fibrillation and flutter I48.91; I48.92 Plan She has been diagnosed with paroxysmal atrial fibrillation/flutter. Again today she appears remained in sinus rhythm/sinus bradycardia. Her graft she will continue rate control therapy. She will continue anticoagulant therapy. With respect her rate control therapy if there is concern that she is not tolerating her higher dose beta-blockers based on concerns of feeling tired and sluggish and fatigued she was asked to decrease her evening beta-mili dose down to 50 mg a day. She will need to monitor for any concerning symptoms from a cardiac standpoint. She was also asked to monitor for any obvious improvement in her underlying noncardiac related type symptoms, etc. She will continue anticoagulant therapy. If she does proceed with knee intervention this would need to be temporarily interrupted for any type of invasive or interventional or surgical procedure. 5. Hypertension, unspecified type I10 Plan Her blood pressure appears to be well controlled. She will continue medical management. She was asked to follow her heart rate and blood pressure at home. 6. HLD (hyperlipidemia) E78.5 Plan She will be asked to have fasting lipid and hepatic profile. Her medications can be adjusted as deemed appropriate. 7. Long-term use of high-risk medication Z79.899 Plan Based upon being on lipid-lowering medication she will have her lipid profile and hepatic profile checked. Also in the interim she was asked to follow-up with her primary care physician for reassessment of her thyroid function hormone levels. This may play a role in her symptoms with respect to her tiredness, sluggishness, and fatigue as well as any concerns of interaction with her cardiac ectopy or rhythm related issues. Plan Detail Other Orders Orders: Additional Comments The above was discussed with the patient with her spouse present. She was agreeable to this approach. In the interim she states she will be making her decision as to how she wants to proceed with her knee whether it be stem cell therapy or traditional knee replacement therapy. She was asked to notify the office as to how she is going to proceed. At the present time, with respect to the patient proceeding with additional knee evaluation and care, it does not appear from a cardiac standpoint, that she requires additional cardiac diagnostic studies or therapeutic intervention-other than adjustment of medications. She would need close monitoring of her cardiac rate rhythm and blood pressure during and following her procedures. An attempt should be made to avoid any significant fluctuations in her cardiac rate and/or rhythm and blood pressure during and following her procedures. Also an attempt should be made to avoid any significant volume overload via IV fluids, etc. during or following her procedures. She should continue her medications in and around the time of her procedures as best as tolerated. Her anticoagulant therapy would need to be interrupted approximately 4 days prior to her procedure and resumed as soon as possible following her procedure. She is at an increased risk for adverse cardiovascular events for noncardiac surgery based upon her previous cardiovascular history. However hopefully, based upon her ongoing clinical course without evidence of ongoing angina pectoris, CHF, or hemodynamically compromising cardiac dysrhythmias, etc. with appropriate monitoring and medication adjustment her risks can be kept at a minimum. Thank you for allowing me to participate in the care of your patient. Please don't hesitate to call if any issues arise. This note was generated using a voice recognition system and there may be incorrect words, spelling or punctuation that were not noted when reviewing the office note prior to saving. Follow Up 3 Months Coding Level of Care Code Off vis,est,level 4 Diagnoses Atherosclerosis of [place] coronary artery of [place] heart without angina pectoris I25.10 [place] vs. transplanted heart: [place] heart Presence of stent in coronary artery Z95.5 Paroxysmal atrial tachycardia I47.1 Atrial fibrillation and flutter I48.91; I48.92 Hypertension, unspecified type I10 Hypertension type: unspecified HLD (hyperlipidemia) E78.5 Long-term use of high-risk medication Z79.899 Coding Level of Care Code Off vis,est,level 4 Diagnoses Atherosclerosis of [place] coronary artery of [place] heart without angina pectoris I25.10 [place] vs. transplanted heart: [place] heart Presence of stent in coronary artery Z95.5 Paroxysmal atrial tachycardia I47.1 Atrial fibrillation and flutter I48.91; I48.92 Hypertension, unspecified type I10 Hypertension type: unspecified HLD (hyperlipidemia) E78.5 Long-term use of high-risk medication Z79.899 12/03/17 1206 <Electronically signed by Rashaad Hall MD> Date Rashaad Hall MD Cosigner Signature: Date (if applicable) CC: Marcela Torres MD 12 LEAD EKG PERFORMED Observed: 12/03/2017 Status: F Source: QUIANA BY BELTRAN 10:30 AM [place] [address] [place] [address] 12 Lead EKG performed by BELTRAN 12/03/17 1030 MR#: [id number] Acct: [id number] Name: ERIN CASTILLO Rep #: [id number] : 1945 72 From: Rashaad Hall MD Attending Dr: Rashaad Hall MD Status: DEP AMB Ordering Dr: Rashaad Hall MD Date: 12/03/17 Location: [facility] Sex: F C Admitted: BMS/12 Lead EKG performed by [facility] ECG Report Interpretation Sinus Bradycardia Low voltage QRSNegative T-waves - Consider Anterior-Lateral ischemia. Comment: C/W the ECG of 09/28/2016: No Significant ChangeElectronically signed on 12/03/2017 at 12:38 by Rashaad Hall 12/03/17 1239 Date Rashaad Hall MD CC: Marcela Torres MD Date Dictated: 12/03/17 1030 Date Transcribed: 12/03/17 103 Customer Experience Strategist: PM Signed CBC-COMPLETE BLOOD CNT Collected: 11/16/2017 Status: F Source: QUIANA NO DIFF 2:21 PM [facility] REPOSITORY TYPE CODE TESTS RESULT OUT OF RANGE REFERENCE UNITS LAB L100.1000 4.4-11.0 K/mm3 Normal WBC 5.3 LAB L100.1200 4.2-5.4 M/mm3 Low RBC 4.04 LAB L100.1300 12.0-15.0 g/dl Normal HGB 12.7 LAB L100.1400 37-47 % Normal HCT 38.6 LAB L100.1500 81-99 fL Normal MCV 95.5 LAB L100.1600 27.0-32.0 pg Normal MCH 31.4 LAB L100.1700 32-36 g/gl Normal MCHC 32.9 LAB L100.1810 11.6-14.6 % High RDW CV 15.2 LAB L100.1820 35.1-43.9 fl High RDW SD 51.8 LAB L100.1900 150-450 K/mm3 Normal PLT 234 LAB L100.2000 6.2-12.0 fl Normal MPV 9.7 Performed By: #### L100.0500 #### [facility] [address] [place], [place], [address] BASIC METABOLIC Collected: 11/16/2017 Status: F Source: QUIANA PROFILE (BMP) 2:21 PM [facility] REPOSITORY TYPE CODE TESTS RESULT OUT OF RANGE REFERENCE UNITS LAB L501.0100 74-106 mg/dL Normal GLU 97 Result Comment: Please note revised GLUCOSE reference range effective 2017. LAB L501.1000 7-18 mg/dL Normal BUN 18 LAB L501.1100 0.55-1.02 mg/dL High CREAT,SERUM 1.20 Result Comment: The validity of the calculated GFR AND GFRAA in patients over 70 years has not been determined. Clinical correlation is essential. LAB L501.1110 >60 mL/min Low EST GFR 47 Result Comment: Non- GFR Calc LAB L501.1115 >60 mL/min Low EST GFR - AA 57 Result Comment: GFR Calc LAB L501.1300 10-20 RATIO Normal BUN/CRE 15.0 LAB L501.2200 8.5-10.1 mg/dL CA Normal 9.1 LAB L501.5300 136-145 mmol/L NA Normal 143 LAB L501.5600 3.5-5.1 mmol/L K Normal 4.0 LAB L501.5900 98-107 mmol/L CL Normal 106 LAB L501.6100 21.0-32.0 mmol/L Normal CO2 32.0 LAB L501.6200 5-15 Normal GAP 5 Performed By: #### L500.2500, L501.9520 #### [facility] [address] [place] [place], [place], [address] THYROID STIM HORMONE Collected: 11/16/2017 Status: F Source: QUIANA (TSH) 2:21 PM [facility] REPOSITORY TYPE CODE TESTS RESULT OUT OF RANGE REFERENCE UNITS LAB L501.9520 0.358-3.74 uIU/mL Low TSH 0.19 Performed By: #### L500.2500, L501.9520 #### [facility] [address] [place], [address] CARDIOLOGY VISIT Observed: 09/08/2017 Status: F Source: QUIANA REPORT 6:00 PM [facility] REPOSITORY [facility] [address] [place] [address] OFFICE VISIT Date of Service: 09/07/17 MR#: [id number] Acct: [id number] Name: ERIN CASTILLO Rep #: [id number] : 1945 Provider: KVNG Morgan Age/Sex: 71/F Location: [facility] Status: Signed HPI HPI Details: ERIN CASTILLO, is a 71 F who presents to the office today for a cardiovascular outpatient follow-up. Patient has a history of coronary artery disease status post remote PTCA/stents, supraventricular tachycardia status post EPS/RFA, hypertension, and hyperlipidemia. Patient contacted our office stating that she woke up with chest pain that was different than previous chest pain. She states having CP that woke her up this morning. She took one NTG that had minimal relieve. She states having some right shoulder pain and belching. Pt. states having an episode of pounding/ palpitations during the episode of CP. She states somewhat feeling lightheadedness, but no dizziness during this episode. She states she had increases need to use the restroom. Pt. denies arm, jaw, or neck discomfort. Pt. denies symptoms of CHF, near syncope, dizziness, or syncopal episodes. Pt. denies edema or claudication issues. Pt. denies orthopnea, PND, fever, chills, blood in urine, blood in stool, or myalgia. Echocardiogram from March 2017 showed an estimated ejection fraction of 60%, mildly enlarged left atrium, RVSP of 27 mmHg, and diastolic dysfunction. This was done for surgical clearance. Intake Vital Signs09/07/17 Height 5 ft 3 in 09/07/17 Weight: 242 lb 09/07/17 Body Mass Index (BMI) 42.8 09/07/17 Blood Pressure 110/82 Intake Visit Reasons: CP/ Rapid HR Accompanied by: Significant Other Is patient in pain?: No Allergies ibuprofen Allergy (Verified 09/07/17 15:21) Unknown iodine Allergy (Verified 09/07/17 15:21) Unknown naproxen sodium [From Aleve] Allergy (Verified 09/07/17 15:21) Unknown oxytetracycline [From Terramycin] Allergy (Verified 09/07/17 15:21) Unknown oxytetracycline HCl [From Terramycin] Allergy (Verified 09/07/17 15:21) Unknown Sulfa (Sulfonamide Antibiotics) Allergy (Verified 09/07/17 15:21) Unknown Medications ALPRAZolam [Xanax] 0.25 mg PO BID PRN PRN 05/11/13 [History Confirmed 09/07/17] Clopidogrel Bisulfate [Plavix] 75 mg PO DAILY 05/11/13 [History Confirmed 09/07/17] Hydrochlorothiazide [Hctz] 25 mg PO DAILY 05/11/13 [History Confirmed 09/07/17] Levothyroxine [Synthroid] 75 mcg PO DAILY 05/11/13 [History Confirmed 09/07/17] Metoprolol Tartrate [Lopressor] 50 mg PO BID 05/11/13 [History Confirmed 09/07/17] Multivitamins,Therapeutic [Multivitamin] 1 tab PO DAILY 05/11/13 [History Confirmed 09/07/17] Niacin SA [Niaspan] 1,000 mg PO QHS 05/11/13 [History Confirmed 09/07/17] Simvastatin [Zocor] 40 mg PO QHS 05/11/13 [History Confirmed 09/07/17] Pristiq 50 mg PO DAILY 10/29/14 [History Confirmed 12/30/15] Zolpidem Tartrate [Ambien] 10 mg PO QHS 10/29/14 [History Confirmed 09/07/17] aspirin 325 mg tablet 325 mg PO QDAY 06/30/17 [History Confirmed 09/07/17] nitroglycerin 0.4 mg sublingual tablet 0.4 mg SUBLINGUAL Q5M PRN 06/30/17 [History Confirmed 09/07/17] potassium chloride ER 20 mEq tablet,extended release(part/cryst) 20 meq PO QDAY 06/30/17 [History Confirmed 09/07/17] lansoprazole 30 mg capsule,delayed release 30 mg PO DAILY #90 cap 08/16/17 [Rx Confirmed 09/07/17] furosemide 20 mg tablet 20 mg PO DAILY PRN 09/07/17 [History Confirmed 09/07/17] isosorbide mononitrate ER 30 mg tablet,extended release 24 hr 30 mg PO .COMPLEX 09/07/17 [History Confirmed 09/07/17] isosorbide mononitrate ER 60 mg tablet,extended release 24 hr 60 mg PO .COMPLEX 09/07/17 [History Confirmed 09/07/17] Ejection fraction %: 60 to 64 PFS Medical History Chest pain (Acute) History of myocardial infarction (Chronic) Paroxysmal atrial tachycardia (Chronic) Supraventricular tachycardia (Chronic) Hyperlipidemia (Chronic) Atherosclerotic heart disease of [place] coronary artery without angina pectoris (Chronic) Surgical History Stented coronary artery (Chronic) History of left heart catheterization (Chronic) Family History Father Myocardial infarction CAD (coronary artery disease) Mother Cancer Myocardial infarction Sister , age 58 of massive [place] CAD (coronary artery disease) Sudden cardiac Myocardial infarction Sister CAD (coronary artery disease) history of CABG Social History Smoking Status: Never smoker ROS Const Const: Positive for other (Started 4:30 am belching and pain in right shoulder blade. ) and fatigue; negative for body ache, fever(s), chills, night sweats, daytime sleepiness, difficulty sleeping, weight gain, weight loss, increased appetite, poor appetite, anorexia, excessive sweating, frequent falls, headache(s) or weakness Eyes Eyes: Negative for blurry vision or double vision ENT ENT: Negative for balance problems, Negative for dizziness, Negative for headache(s) Cardio Chest Pain: Yes (Took 1 nitro at 6:13 am, it only helped a little. HR 123, went down to 93) Frequency: other (this am.) Character: sharp Onset: at rest, other (Had been going to bathroom frequently this am) Location: other (right shoulder blade) Duration: minutes (15) Exacerbation: other (it came on suddenly while in bed ) Relieving: other (nitro helped only a little) Recurrence: other (no recurrence since this am but very wiped out.) Palpitations: Positive for Yes (rapid HR 123, it finally went down to 90) Edema: None Muscle aches with walking: None Resp Respiratory: Negative for SOB with activity, SOB at rest, SOB orthopnea\SOB lying down, Coughing up blood/hemoptysis, chest congestion, pain on inspiration, snoring, stridor, wheezing, crackles, paroxysmal nocturnal dyspnea or other GI GI: Negative nausea, vomiting, heartburn, constipation, belching, bloating, cramping, vomiting blood/hematemesis, bright, red blood in stools, black,tarry stools, loose stools, Difficulty Swallowing or other Musc Musc: Negative for muscle aches/ myalgia, muscle weakness, joint pain or balance problems Neuro Neuro: Negative for dizziness, Negative for lightheadedness, Negative for near syncope, Negative for syncope, Negative for orthostatic symptoms, Negative for confusion, Negative for memory loss, Negative for restless legs, Negative for blurry vision, Negative for double vision, Negative for vertigo, Negative for seizures, Negative for lack of coordination, Negative for other, Negative for frequent falls, Negative for headache(s), Negative for weakness Endo Endo: Positive for fatigue; negative for cold intolerance, heat intolerance, flushing, increased thirst/drinking, increased hunger, hair loss, hair growth, other or excessive sweating Cardiology Exam Const Appearance: cooperative, healthy appearing, comfortable and no acute distress Orientation: alert, awake and oriented x3 Head Head: normal to inspection Mouth: oral mucosae normal Neck Neck: no JVD and normal visual inspection Carotids: normal carotid upstroke Chest Chest inspection: normal inspection of the chest and normal respiratory effort Auscultation: Bilateral: Clear to Auscultation Cardio Rate: regular rate Rhythm: regular rhythm Heart sounds: S1 normal, S2 normal and positive S4 (LLSB systolic ); negative rub or gallop Murmur: Grade 1/6 GI GI: normal to inspection Neuro General: alert, awake, oriented x3 and CN's II-XI intact bilaterally Skin Skin: no rashes or lesions noted Extremities Pulses: Normal: Right Posterior Tibial Pulse, Left Posterior Tibial Pulse, Right Radial Pulse, Left Radial Pulse Lower Extremity Edema: None: Bilateral Psych Psychological: normal affect Assessment AND Plan 1. Other chest pain R07.89; R07.8 Plan - MYNRA Almeida Patient's chest pain appears atypical for classical anginal symptoms. Her most recent stress test was negative. Her most recent heart catheterization showed patent stents. However given her extensive cardiac history and pain feeling slightly different. It will be further evaluated. She does state waking up with palpitations during episode of chest pain. Thus, a 30 day event monitor but evaluated to discern if any rhythm change as component to her chest pain. 2. 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 We will wait for results of the tests for further recommendation. Orders Orders: 3. Atherosclerotic heart disease of [place] coronary artery without angina pectoris I25.10 PTCA of the LAD in December 2007; PTCA/Stent of the prox LAD, mid LAD, diagonal 1 in January 2008; 08-01-2008 PTCA/stent to PDA, Cutting Balloon to LAD, PTCA with stent to RCA, cutting balloon to the distal stent LAD in July 2008 Plan - MYRNA Almeida Patient's most recent cardiovascular stress test from March 2017 was negative for myocardial induced ischemia and reported an ejection fraction of 69%. Patient's most recent heart catheterization from December 2015 showed an ejection fraction of 60% and patent stents to LAD, LCx, and RCA. Patient's chest pain appears atypical for classic anginal symptoms. Her chest pain we will further evaluate as noted above with a 30 day event monitor. 4. Palpitations R00.2 Plan - MYRNA Almeida This will be further evaluated 30 day event monitor. Orders Orders: Plan Detail Other Orders Orders: Other Medications Discontinued: isosorbide mononitrate ER [id number] mg PO 3 tablets at bedtime; swallow w Yi A Opal raman Reason: Order Changed hole with glass of water; do not crush/c hew /dissolve /cut/break Additional Comments - MYRNA Almeida Patient will keep December [address] Hall for further evaluation. Discussed the above patient with Dr. Hall, he agrees with the plan of care. Thank you for allowing us to participate in the patients plan of care, if you have any questions please do not hesitate to call. This note was generated using a voice recognition system and there may be incorrect words, spelling or punctuation that were not noted when reviewing the office note prior to saving. Coding Level of Care Code Off vis,est,level 3 Diagnoses Other chest pain R07.89; R07.8 Chest pain type: other chest pain Supraventricular tachycardia I47.1 Atherosclerotic heart disease of [place] coronary artery without angina pectoris I25.10 Palpitations R00.2 Coding Level of Care Code Off vis,est,level 3 Diagnoses Other chest pain R07.89; R07.8 Chest pain type: other chest pain Supraventricular tachycardia I47.1 Atherosclerotic heart disease of [place] coronary artery without angina pectoris I25.10 Palpitations R00.2 09/08/17 1250 <Electronically signed by Mary Jo NORRIS> Date Mary Jo ARMIJOC 09/08/17 1800<Electronically signed by Rashaad Hall MD> Cosigner Signature: Date (if applicable) Rashaad Hall MD CC: Marcela Torres MD ALLERGIES ALLERGIES DATE TYPE / NAME / CODE REACTION SEVERITY SOURCE CODE 04/29/2018 Drug naproxen Unknown Unknown [place] Allergy/41 sodium/[id number](RXN [facility] [id number]) Repository 04/29/2018 Drug oxytetracycline Unknown Unknown [place] Allergy/41 HCl/L899194827(RXNORM Community [id number]) Repository 04/29/2018 Drug Sulfa (Sulfonamide Unknown Unknown [place] Allergy/41 Antibiotics)/[id number] [facility] [id number]([facility](RXNO) [facility]) Repository 04/29/2018 Drug iodine/[id number](RXN Unknown Unknown [place] Allergy/41 ORM) Community [id number]([facility]) Repository 04/29/2018 Drug oxytetracycline/F0060 Unknown Unknown [place] Allergy/41 91525(RXNORM) Community [id number]([facility]) Repository 09/07/2017 Drug ibuprofen/U269574810( Unknown Unknown [place] Allergy/41 RXNORM) [facility] [id number]([facility]) Repository ENCOUNTERS ENCOUNTERS ADMIT/DISCHARGE ACCOUNT ADMITTING ENCOUNTER LOCATION SOURCE NUMBER CLASS 06/17/2018 [id number] Ambulatory [place] [facility] ing:HPRAD Repository 06/17/2018/ [id number] Ambulatory BMSBuilding:B [place] [facility] 8 [facility] Repository 04/29/2018/ [id number] Ambulatory BMSBuilding:B [place] 1 [facility] Repository 04/21/2018 [id number] Ambulatory [place] 7 [facility] ing:MTLAB Repository 03/25/2018 [id number] Ambulatory BMSBuilding:B [place] 0 [facility] Repository 02/25/2018 [id number] Ambulatory BMSBuilding:B [place] 8 [facility] Repository 01/24/2018 [id number] Ambulatory [place] 1 [facility] Hospital ing:MFPLAB Repository 12/24/2017 [id number] Ambulatory [place] 5 [facility] ing:MFPLAB Repository 12/22/2017 [id number] Ambulatory BMSBuilding:B [place] 4 [facility] Repository 12/08/2017 [id number] Ambulatory [place] 2 [facility] ing:MTLAB Repository 12/03/2017/ [id number] Ambulatory BMSBuilding:B [place] 8 8 [facility] Repository 11/30/2017 [id number] Ambulatory BMSBuilding:B [place] 3 [facility] Repository 11/16/2017 [id number] Ambulatory [place] 9 [facility] Hospital ing:MTLAB Repository 09/09/2017 [id number] Ambulatory [place] 2 [facility] Hospital ing:CVS Repository 09/09/2017 [id number] Ambulatory BMSBuilding:W [place] 6 [facility] Repository 09/07/2017/ [id number] Ambulatory BMSBuilding:B [place] 8 5 [facility] Repository PAYERS PAYERS ENCOUNTER GUARANTOR PAYER SUBSCRIBER SOURCE 06/17/2018 ERIN Nicholson Primary ERIN Nicholson [place] [id number] Insurance:MEDICARE BROWNEDOB: Community [place] PART A BPolicy [place]: [id number] [id number] Repository 03792Zvx: (330) Date:2018-06-17 [phone] () 06/17/2018 Secondary ERIN Nicholson [place] Insurance:HUMANA BROWNEDOB: Community COMMERCIALPolicy [id number] Hospital Number: Repository [id number] Date:0572-06-55NB [address] [address]TW: 06/17/2018 Tertiary NOT GIVENUNK [place] Insurance:SELF PAY [facility] Number: Effective Repository Date:2018-06-17 06/17/2018 ERIN J Primary ERIN Nicholson [place] [id number] Insurance:MEDICARE BROWNEDOB: Community [place] PART A BPolicy Number: [id number], [place] [id number] Repository [address]Pwo: (330) Date:2018-05-11 [phone] () 06/17/2018 Secondary ERIN Nicholson [place] Insurance:HUMANA BROWNEDOB: [facility] [id number] Hospital Number: Repository [id number] Date:8432-48-30QU [address] [address]AD: 06/17/2018 Tertiary NOT GIVENUNK [place] Insurance:SELF PAY [facility] Number: Effective Repository Date:2018-06-17 04/29/2018 ERIN J Primary ERIN Nicholson [place] [id number] Insurance:MEDICARE BROWNEDOB: Community EMALENE PART A BPolicy Number: [id number], [place] [id number] Repository [address]Ten: (330) Date:2018-03-25 [phone] () 04/29/2018 Secondary ERIN J [place] Insurance:HUMANA BROWNEDOB: [facility] [id number] Hospital Number: Repository [id number] Date:9169-11-35ZD [address] [place] [address]GA: 04/29/2018 Tertiary NOT GIVENUNK [place] Insurance:SELF PAY [facility] Number: Effective Repository Date:2018-04-29 04/21/2018 ERIN Nicholson Primary ERIN Nicholson [place] [id number] Insurance:MEDICARE BROWNEDOB: Community EMAL[place] PART A BPolicy Number: [id number], [place] [id number] Repository [address]Xbj: (136) Date:2018-04-21 [phone] () 04/21/2018 Secondary ERIN Nicholson [place] Insurance:HUMANA BROWNEDOB: [facility] [id number] Hospital Number: Repository [id number] Date:6053-47-84VC [address] [place] [address]RW: 04/21/2018 Tertiary NOT GIVENUNK [place] Insurance:SELF PAY [facility] Number: Effective Repository Date:2018-04-21 03/25/2018 ERIN Nicholson Primary ERIN Nicholson [place] [id number] Insurance:MEDICARE BROWNEDOB: Community EMAL[place] PART A BPolicy Number: [id number], [place] [id number] Repository [address]Asc: (445) Date:2017-12-03 [phone] () 03/25/2018 Secondary ERIN Nicholson [place] Insurance:HUMANA BROWNEDOB: [facility] [id number] Hospital Number: Repository [id number] Date:5324-80-58LH [address] [place] [address]UL: 03/25/2018 Tertiary NOT GIVENUNK [place] Insurance:SELF PAY [facility] Number: Effective Repository Date:2017-12-03 02/25/2018 ERIN Nicholson Primary ERIN Nicholson [place] [id number] Insurance:MEDICARE BROWNEDOB: Community EMALENE PART A BPolicy Number: [id number], [place] [id number] Repository [address]112[address]Vgg: (428) Date:2017-12-03 [phone] (HP) 02/25/2018 Secondary ERIN Nicholson [place] Insurance:HUMANA BROWNEDOB: Community COMMERCIALPolicy [id number] Hospital Number: Repository [id number] Date:5209-87-87EI [address] [place] [address]XH: 02/25/2018 Tertiary NOT GIVENUNK [place] Insurance:SELF PAY [facility] Hospital Number: Effective Repository Date:2017-12-03 01/24/2018 ERIN Nicholson Primary ERIN Nicholson [place] [id number] Insurance:MEDICARE BROWNEDOB: Community EMALENE PART A BPolicy Number: [id number], [place] [id number] Repository [address]67[address]Ipw: (815) Date:2018-01-24 [phone] () 01/24/2018 Secondary ERIN Nicholson [place] Insurance:HUMANA BROWNEDOB: [facility] [id number] Hospital Number: Repository [id number] Date:3175-25-35RK [address] [place] [phone]: 01/24/2018 Tertiary NOT GIVENUNK [place] Insurance:SELF PAY [facility] Number: Effective Repository Date:2018-01-24 12/24/2017 ERIN Nicholson Primary ERIN Nicholson [place] [id number] Insurance:MEDICARE BROWNEDOB: Community EMALENE PART A BPolicy Number: [id number], [place] [id number] Repository [address]Arm: (099) Date:2017-12-24 [phone] (HP) 12/24/2017 Secondary ERIN Nicholson [place] Insurance:HUMANA BROWNEDOB: [facility] COMMERCIALAcmh Hospital [id number] Hospital Number: Repository [id number] Date:[id number] [address] [place] [id number]: 12/24/2017 Tertiary NOT GIVENUNK [place] Insurance:SELF PAY [facility] Number: Effective Repository Date:2017-12-24 12/22/2017 ERIN Nicholson Primary ERIN Nicholson [place] [id number] Insurance:HUMANA BROWNEDOB: Community [facility] [facility] [id number] Number: Repository [id number]: [phone]) [id number] [phone] () Date:[id number] [address]RS: 12/22/2017 Secondary ERIN Nicholson [place] Insurance:MEDICARE BROWNEDOB: Community PART A BPolicy Number: [id number] Hospital [id number] Repository Date:2017-07-08 12/22/2017 Tertiary NOT GIVENUNK [place] Insurance:SELF PAY [facility] Number: Effective Repository Date:2017-07-08 12/08/2017 ERIN Nicholson Primary ERIN Nicholson [place] [id number] Insurance:MEDICARE BROWNEDOB: Community [place] PART A BPolicy Number: [id number], [place] [id number] Repository [address]Mxh: 330) Date:2017-12-08 [phone] () 12/08/2017 Secondary ERIN Nicholson [place] Insurance:HUMANA BROWNEDOB: [facility] [id number] Hospital Number: Repository [id number] Date:[id number] [address] [address]QN: 12/08/2017 Tertiary NOT GIVENUNK [place] Insurance:SELF PAY [facility] Number: Effective Repository Date:2017-12-08 12/03/2017 ERIN Nicholson Primary ERIN Nicholson [place] [id number] Insurance:MEDICARE BROWNEDOB: Community [place] PART A BPolicy Number: [id number], [place] [id number] Repository [address]Bic: [phone]) Date:2017-11-19 [phone] () 12/03/2017 Secondary ERIN Nicholson [place] Insurance:HUMANA BROWNEDOB: [facility] [id number] Hospital Number: Repository [id number] Date:3770-26-19XK [address] [place] [id number]: 12/03/2017 Tertiary NOT GIVENUNK [place] Insurance:SELF PAY [facility] Number: Effective Repository Date:2017-11-19 11/30/2017 ERIN Nicholson Primary ERIN J [place] [id number] Insurance:MEDICARE BROWNEDOB: Community [place] PART A BPolicy Number: [id number], [place] [id number] Repository [address]Hzn: ([phone]) Date:2017-11-30 [phone] () 11/30/2017 Secondary ERIN J [place] Insurance:HUMANA BROWNEDOB: [facility] [id number] Hospital Number: Repository [id number] Date:8509-73-13SP [address] [place] [id number]: 11/30/2017 Tertiary NOT GIVENUNK [place] Insurance:SELF PAY [facility] Number: Effective Repository Date:2017-11-30 11/16/2017 ERIN J Primary ERIN J [place] [id number] Insurance:MEDICARE BROWNEDOB: Community [place] PART A BPolicy Number: [id number], [place] [id number] Repository [address]Ajl: ([phone]) Date:2017-11-16 [phone] () 11/16/2017 Secondary ERIN J [place] Insurance:HUMANA BROWNEDOB: [facility] [id number] Hospital Number: Repository [id number] Date:7479-16-87HM [address] [place] [id number]: 11/16/2017 Tertiary NOT GIVENUNK [place] Insurance:SELF PAY [facility] Number: Effective Repository Date:2017-11-16 09/09/2017 ERIN Nicholson [place] Insurance:SELF NOT GIVENUNK [place] [id number] PAY [facility] Number: Effective [place] Date:2017-09-07 Repository [address]Njd: (HP) 09/09/2017 ERIN J Primary ERIN J [place] [id number] Insurance:MEDICARE BROWNEDOB: Community [place] PART A BPolicy Number: [id number], [place] [id number] Repository [address]Dbo: [phone]) Date:2017-09-07 [phone] (HP) 09/09/2017 Secondary ERIN J [place] Insurance:HUMANA BROWNEDOB: [facility] [id number] Hospital Number: Repository [id number] Date:[id number] [address] [place] [id number]: 09/09/2017 Tertiary NOT GIVENUNK [place] Insurance:SELF PAY [facility] Number: Effective Repository Date:2017-09-09 09/07/2017 ERIN J Primary ERIN J [place] [id number] Insurance:MEDICARE BROWNEDOB: [facility] EMALENE PART A BPolicy Number: [id number], [place] [id number] Repository [address]Itw: [phone]) Date:2017-09-07 [phone] () 09/07/2017 Secondary ERIN J [place] Insurance:HUMANA BROWNEDOB: [facility] [id number] Hospital Number: Repository [id number] Date:1549-07-80XF [address] [place] [phone]: 09/07/2017 Tertiary NOT GIVENUNK [place] Insurance:SELF PAY [facility] Number: Effective Repository Date:2017-09-07
== END ==
PROVIDERS: Family Provider Family Medicine; PCP Family Medicine; Referring Provider Physician Assistant; Visit Provider Physician Assistant
DX: M25.562 Pain in left knee (principal)
CPT/HCPCS: 73564

== ENCOUNTER 2018-07-25 13:30 | Outpatient (RCR) | payer MEDICARE, OTHER, SELFPAY ==
--- NOTE | 2018-07-07 07:37 | HP.PTEVAL ---
Patient's Visit Information ERIN CASTILLO is a 72 year old F referred to Physical Therapy by MAYA Dotson with a diagnosis of B tricompartment knee OA. Date of Evaluation: 07/06/18 Physical Therapist: Adelfo May DPT - Visit Plan Frequency: 2x /Week Duration: 4-6 Weeks Plan: Start with BLE quad, HS, hip, glute med, glte max in aquatic setting. Progress to functional strenghtening and HEP as able. - Subjective Findings: Pt is here today for her intial evaluation with diagnosis of Carlo tricompartment osteoarthritis of her knees. Pt. reports having pain for 2+ years and was supposed to have TKA beginning of this year, but had some heart issues (AFIB) limiting ability to do so. Now she is here to work on strengthening to increase stability of her knees and allow for increased tolerance to all functional mobility. Pt. reports having a constant pain of 2/10, but is able to complete activities without much increase in her symptoms. Her chief complaint is that her knees give out on her. Pt. reports having to negotiate steps with lateral fashion due to instability. Pt. is hopeful to increase her strength in order to get back to all recreational and ADL activities without limitations. - Pain R knee Pain Intensity (Out of 10): 1 Pain Intensity Range: 0, 4 L knee Pain Intensity (Out of 10): 3 Pain Intensity Range: 1, 5 - Objective POSTURE: Pt. wide YOLIS in stance. Pt. has increase B knee valgus posture. Pt. is over wt. Pt. tends to cloth dyeing range tender genu recuvatum. PALPATION: pt. has mild increased tenderness at R patellar tendon and medial joint line. No pain with L knee palpation. NEURO: Pt. has normal sensation, normal DTR bilaterally. Pt is able to rise on heels and toes without LOB. ROM: R knee: 0-0-132deg NE, stifness noted at end rnage, adipose tissue restriction. L knee 0-5-128deg. Pt. had increased pain with over presssure into knee ext. no pain with oer pressure with knee flexion. MMT: RLE- ankle- 5/5 throughout; knee- ext 4/5, flexion 4/5; hip- flexion 4/5, abd 4-/5, ext 4/5. LLE- ankle 5/5 throughout; knee ext 4/5, flexion 4/5: hip- flexion 4-/5 abd 4-/5 ext 4-/5. Core strength- poor. GAIT: Pt. has slight flexed posture , lacks TKE on LLE with gait. Increased lateral hip sway, mild contralateral hip drop. STAIRS: Pt. descends laterally loading RLE only and use of both UEs on HR. Pt. is able to ascend in normal fashion, but is step to in nature, loading RLE only. - Goals Goal 1:: Pt to be I with HEP. Goal Time Frame: 4-6 Weeks Goal 2:: Pt. to have increased BLE strength by 1/2 grade of all effected musculature to increase stability with all functional mobility. Goal Time Frame: 4-6 Weeks Goal 3:: Pt. to ambulate unlimited distances without increase in symptoms allowing for increased quality of life. Goal Time Frame: 4-6 Weeks Goal 4:: Pt. to sleep throughout the night without increase in symptoms. Goal Time Frame: 4-6 Weeks Goal 5:: Pt. to negotiate steps with step to pattern with 1 HR without increase in symptoms. Goal Time Frame: 4-6 Weeks - Rehabilitation Potential Physical Therapy Diagnosis: Pt. has signs and symptoms consistent with B knee OA. Pt. has good ROM of her knees, but strength is limited throughout B hips, quads, HS. PT. would benefit from PT to increase her strength adn stability of B LEs. Rehabilitation Potential: Good - Anticipated Interventions Patient/Client Instruction: Educate patient on: Condition, Plan of Care, Risk Factors, Benefits of Fitness Program For the Purpose of:: To foster healthy habits, To improve decision making, To facilitate caregiver knowledge, To improve self management, To prevent re-injury, To improve ability to perform tasks related to life management, To improve tolerance to ADL's Therapeutic Exercise to Include: Strength training, Power training, Endurance training, Flexibilty training, Gait and locomotor training, In an aquatic setting, Passive ROM, Active ROM For the Purpose of:: To decrease pain, To decrease swelling/inflammation, To increase ROM, To improve nutrient delivery to tissue Thank you for the opportunity to evaluate your patient. For Medicare and Medicare HMO plans, please review the plan of care and approve it. It will need to be FAXED BACK to us at [phone] for Medicare purposes. For Medicare only, by signing this I certify the plan of care. Please let me know if there are questions or concerns regarding this plan of care. Physician Signature: Date:
--- NOTE | 2018-09-14 13:26 | HP.PTDCNRP_ITS ---
HP - Discharge Summary (1) - Patient Information ERIN CASTILLO was seen in my office for initial evaluation on 07/06/18. The following Plan of Care was established for this patient: Initial Frequency: 2x /Week Initial Duration: 4-6 Weeks - Anticipated Interventions Patient/Client Instruction: Educate patient on: Condition, Plan of Care, Risk Factors, Benefits of Fitness Program For the Purpose of:: To foster healthy habits, To improve decision making, To facilitate caregiver knowledge, To improve self management, To prevent re- injury, To improve ability to perform tasks related to life management, To improve tolerance to ADL's Therapeutic Exercise to Include: Strength training, Power training, Endurance training, Flexibilty training, Gait and locomotor training, In an aquatic set ting, Passive ROM, Active ROM For the Purpose of:: To decrease pain, To decrease swelling/inflammation, To increase ROM, To improve nutrient delivery to tissue This patient was last seen in our office 07/25/18. Pertinent comments regarding their Physical therapy will appear below: Pt. was seen in aquatic setting, but only attended her first follow up, but then had to cancel multiple appointments. Pt. has not been seen in 7 weeks and will be DC from PT at this point in time. At this point I will be discontinuing this patient from physical therapy. I would be happy to see this patient again in the future if found appropriate by the physician. Thank you! Adelfo May, ZAHIDAT
== END 2018-07-25 19:00 | disposition home or self-care (01) ==
LOC: PT 13:30
PROVIDERS: Family Provider Family Medicine; PCP Family Medicine; Referring Provider Physician Assistant; Visit Provider Physician Assistant
DX: M13.862 Other specified arthritis, left knee (principal); M13.861 Other specified arthritis, right knee
CPT/HCPCS: 97113; 97162

== ENCOUNTER → 2018-11-17 11:01 | Outpatient (CLI) | payer MEDICARE, OTHER, SELFPAY ==
[2018-11-17 13:20] LABS: AST(SGOT) 25 U/L (15-37); Alanine Aminotransfer ALT/SGPT 24 U/L (13-56); Albumin, Serum 3.8 g/dL (3.2-5.0); Alkaline Phosphatase 90 U/L (45-117); Bilirubin, Direct 0.12 mg/dL (0.00-0.30); Cholesterol 152 mg/dL (200); Globulin 3.7 g/dL (2.2-4.2); High Density Lipoprotein 50 mg/dL; Protein, Total 7.5 g/dL (6.4-8.2); Triglycerides 153 mg/dL; Very Low Density Lipoprotein 31 mg/dL (5-40)
[2018-11-17 13:36] LABS: AST(SGOT) 24 U/L (15-37); Alanine Aminotransfer ALT/SGPT 24 U/L (13-56); Albumin, Serum 3.8 g/dL (3.2-5.0); Alkaline Phosphatase 87 U/L (45-117); Anion Gap 10 (5-15); BUN 24 mg/dL (7-18); BUN/Creat Ratio 18.9 RATIO (10-20); Calcium,Total 9.2 mg/dL (8.5-10.1); Chloride 104 mmol/L (98-107); Creatinine, Serum 1.27 mg/dL (0.55-1.02); EST Glomerular Filtration Rate 44 mL/min (>60); Est Glom Filt Rate - Afr Amer 53 mL/min (>60); Ferritin 258 ng/mL (8-252); Globulin 3.7 g/dL (2.2-4.2); Glucose 90 mg/dL (74-106); Potassium 3.4 mmol/L (3.5-5.1); Protein, Total 7.5 g/dL (6.4-8.2); Sodium Level 140 mmol/L (136-145); Thyroid Stim Hormone (TSH) 1.42 uIU/mL (0.358-3.74)
== END ==
PROVIDERS: Internal Medicine Cardiovascular Disease; Family Provider Family Medicine; PCP Family Medicine; Referring Provider Internal Medicine Endocrinology, Diabetes & Metabolism; Visit Provider Internal Medicine Endocrinology, Diabetes & Metabolism
DX: E03.8 Other specified hypothyroidism (principal); D50.9 Iron deficiency anemia, unspecified; E78.5 Hyperlipidemia, unspecified
CPT/HCPCS: 36415; 80053; 80061; 80076; 82728; 84443

== ENCOUNTER → 2019-04-20 13:52 | Outpatient (CLI) | payer MEDICARE, OTHER, SELFPAY ==
[2019-04-19 15:18] VITALS: BMI 43.7
--- NOTE | 2019-04-20 13:58 | RAD_ITS ---
HISTORY: Palpitations. Chest pain. EXAM: XR Chest 2 Views: COMPARISON: December 25, 2015 FINDINGS: # of images incl. paperwork: 2 Marked elevation of the right hemidiaphragm is chronic. Cholecystectomy clips are better demonstrated on the previous study. Right basilar scarring and atelectasis is chronic Heart is not enlarged. Atherosclerotic plaque within the aortic arch persists. Calcific tendinosis within the right supraspinatus is present. Pulmonary vascularity is distinct. No effusions. 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 Chronic right basilar atelectasis. at 2015 Reported and signed by: Amor Frankel MD Electronically Signed: Amor Frankel MD at 20:14 EDT Tel , Service support ,
[2019-04-20 15:58] LABS: Absolute Lymphocyte Count 2.38 X10^3/uL (0.83-4.51); Absolute Neutrophil Count 3.4 X10^3/uL (2.0-7.7); Basophil# 0.03 X10^3/uL; Basophil% 0.5 % (0-1); Eosinophil# 0.19 X10^3/uL; Hematocrit 40.2 % (37-47); Hemoglobin 13.7 g/dL (12.0-15.0); Lymphocyte # 2.38 X10^3/ul (4.0); Lymphocyte % 37.4 % (19-41); Mean Corp Hgb Conc 34.1 g/dL (32-36); Mean Corpuscular Hgb 34.6 pg (27.0-32.0); Mean Corpuscular Volume 101.5 fL (81-99); Mean Platelet Vol. 9.5 fl (6.2-12.0); Monocyte# 0.39 X10^3/uL; Monocyte% 6.1 % (0-10); NRBC Flagged by Analyzer 0 % (0-5); Neutrophil # 3.36 X10^3/uL (2.7-7.7); Neutrophil % 52.7 % (47-70); Platelet Count 232 K/mm3 (150-450); RBC Distribution Width CV 11.9 % (11.6-14.6); RBC Distribution Width SD 44.3 fl (35.1-43.9); Red Blood Count 3.96 M/mm3 (4.2-5.4); White Blood Count 6.4 K/mm3 (4.4-11.0)
[2019-04-20 16:14] LABS: BNP,B-Type NATRIURETIC PEPTIDE 76.2 pg/mL (0-100)
[2019-04-20 16:14] LABS: AST(SGOT) 19 U/L (15-37); Alanine Aminotransfer ALT/SGPT 20 U/L (13-56); Albumin, Serum 3.9 g/dL (3.2-5.0); Alkaline Phosphatase 92 U/L (45-117); Bilirubin, Direct 0.15 mg/dL (0.00-0.30); Cholesterol 134 mg/dL (200); Globulin 3.8 g/dL (2.2-4.2); High Density Lipoprotein 56 mg/dL; Protein, Total 7.7 g/dL (6.4-8.2); Triglycerides 108 mg/dL; Very Low Density Lipoprotein 22 mg/dL (5-40)
[2019-04-20 16:20] LABS: Anion Gap 5 (5-15); BUN 19 mg/dL (7-18); BUN/Creat Ratio 18.4 RATIO (10-20); Calcium,Total 9.3 mg/dL (8.5-10.1); Chloride 104 mmol/L (98-107); Creatinine, Serum 1.03 mg/dL (0.55-1.02); EST Glomerular Filtration Rate 56 mL/min (>60); Est Glom Filt Rate - Afr Amer 68 mL/min (>60); Glucose 96 mg/dL (74-106); Magnesium 1.8 mg/dL (1.6-2.6); Potassium 3.9 mmol/L (3.5-5.1); Sodium Level 141 mmol/L (136-145); T4 Total, Thyroxin 7.3 ug/dL (4.8-13.9); Thyroid Stim Hormone (TSH) 1.59 uIU/mL (0.358-3.74)
== END ==
PROVIDERS: Internal Medicine Cardiovascular Disease; Family Provider Family Medicine; PCP Family Medicine; Referring Provider Physician Assistant Medical; Visit Provider Physician Assistant Medical
DX: R00.2 Palpitations (principal); I25.10 Atherosclerotic heart disease of native coronary artery without angina pectoris; I47.1 Supraventricular tachycardia; R07.9 Chest pain, unspecified; J98.11 Atelectasis
CPT/HCPCS: 36415; 71046; 80048; 80061; 80076; 83735; 83880; 84436; 84443; 84481; 85025

== ENCOUNTER → 2019-04-26 06:14 | Outpatient (CLI) | payer MEDICARE, OTHER, SELFPAY ==
[2019-04-19 15:18] VITALS: BMI 43.7
--- NOTE | 2019-04-26 06:17 | ECHOD_ITS ---
Reason For Study: CAD Procedure This was a 2D Doppler, Color Flow transthoracic echocardiogram. The study was technically difficult. Exam performed in department. Left Ventricle Normal LV size. Segmental dysfunction with preserved ejection fraction (see wall motion). The estimated ejection fraction is 60 %. No evidence for diastolic dysfunction. Infero-Basal: Hypokinetic. Right Ventricle Normal RV size. Normal systolic function. Atria The left atrium is mildly enlarged. Normal right atrium. No doppler evidence for ASD. Mitral Valve There is no mitral annular calcification. Mild mitral valve prolapse. Trivial mitral valve insufficiency. Tricuspid Valve Normal tricuspid valve. Trivial tricuspid valve insufficiency. Right ventricular systolic pressure estimated to be 21 mmHg. Aortic Valve Trisinus/trileaflet aortic valve. Normal aortic valve. Pulmonic Valve The pulmonic valve is not well visualized. Great Vessels Normal sized aortic root. Pericardium/Pleural No pericardial effusion. MMode/2D Measurements & Calculations LVIDd: 4.6 cm IVSd: 1.1 cm Ao root diam: 3.0 cm LVIDs: 2.3 cm LVPWd: 0.92 cm RVDd: 3.5 cm FS: 50.7 % LAV(MOD-bp): 64.7 ml LA A4 area: 20.4 cm2 LA dimension(2D): 4.0 cm LAV(MOD-bp) Indexed: 30.6 ml/m2 LAV(MOD-sp2): 70.7 ml LAV(MOD-sp4): 60.3 ml RA A4 area: 13.7 cm2 Doppler Measurements & Calculations MV E max wil: 52.2 cm/sec Lat Peak E' Wil: 8.5 cm/sec Med Peak E' Wil: 6.1 cm/sec MV A max wil: 55.2 cm/sec E/E' lat: 6.1 E/E' med: 8.5 MV E/A: 0.95 Ao V2 max: 127.4 cm/sec LV V1 max: 94.7 cm/sec PA V2 max: 69.3 cm/sec Ao max P.5 mmHg LV V1 max P.6 mmHg TR max wil: 211.7 cm/sec TR max P.0 mmHg Interpretation Summary The study was technically difficult. Segmental dysfunction with preserved ejection fraction (see wall motion). The estimated ejection fraction is 60 %. The left atrium is mildly enlarged. Mild mitral valve prolapse. Trivial mitral valve insufficiency. Trivial tricuspid valve insufficiency. Right ventricular systolic pressure estimated to be 21 mmHg. No evidence for diastolic dysfunction. Ordering Physician: mAparo Alexander/Rashaad Hall Referring Physician: Marcela Torres M.D. Performed By: Ely Castro RDCS
--- NOTE | 2019-04-26 10:11 | STRESSREP ---
Stress Test Report Date: 04-26-19 Procedure: Pharmacologic stress nuclear imaging study Indications: Fatigue; CAD; status post PCI; cardiac dysrhythmia status post ablation Consent: Per the patient Procedure: The patient underwent pharmacologic (Regadenoson) evaluation with a peak heart rate of 72 beats per minute (48 %predicted maximal heart rate) and a peak blood pressure of 118/76 mmHg. The baseline ECG demonstrated sinus bradycardia; nonspecific ST/T wave abnormality. The peak pharmacologic ECG demonstrated continued nonspecific ST/T wave abnormality. There was a rare PVC during infusion and recovery. There was no complaint of chest discomfort during pharmacologic infusion or recovery. The examination was discontinued secondary to completion of protocol. Impression: 1. Pharmacologic (Regadenoson) evaluation 2. Peak pharmacologic ECG with continued nonspecific ST/T wave abnormality. 3. There was a rare PVC during infusion and recovery. 4. Nuclear images pending Myocardial perfusion imaging study: Technique: The patient was injected with 15.0 millicuries of technetium 99m Cardiolite and subsequently rest SPECT Cardiolite nuclear imaging was obtained in the horizontal long, vertical long, and short axis views. The patient underwent pharmacologic (Regadenoson) evaluation with a peak heart rate of 72 beats per minute (48 % percent predicted maximal heart rate) and a peak blood pressure of 118/76 mmHg. The patient was injected with 45.0 millicuries of technetium 99m Cardiolite and subsequently stress SPECT Cardiolite nuclear imaging was obtained in the horizontal long, vertical long, and short axis views. A gated Cardiolite study at peak stress was obtained. Interpretation: Rest and stress SPECT Cardiolite nuclear imaging status post realignment, normalization, and attenuation correction demonstrate a small area of subtle diminished myocardial perfusion/tracer uptake near the apical segments without significant change between rest and stress. There is end systolic thickening and brightening. The gated Cardiolite study demonstrates myocardial thickening and inward wall motion. The reported LVEF is 69 %. Impression: 1. Rest and stress SPECT Cardiolite nuclear imaging demonstrate myocardial perfusion changes appearing compatible with physiologic apical thinning with no myocardial perfusion changes considered diagnostic for associated stress-induced myocardial ischemia. 2. The gated Cardiolite study reports an LVEF of 69 %. This note was generated with [employer] software. It may contain incorrect words, spelling, and punctuation that were not noted in checking the note before signing.
== END ==
PROVIDERS: Family Provider Family Medicine; PCP Family Medicine; Referring Provider Physician Assistant Medical; Visit Provider Physician Assistant Medical
DX: I25.10 Atherosclerotic heart disease of native coronary artery without angina pectoris (principal); I47.1 Supraventricular tachycardia; R00.2 Palpitations; R07.9 Chest pain, unspecified
CPT/HCPCS: 78452; 93017; 93306; A9500; A4216; J2785

== ENCOUNTER → 2019-05-17 11:19 | Outpatient (CLI) | payer MEDICARE, OTHER, SELFPAY ==
[2019-04-19 15:18] VITALS: BMI 43.7
[2019-05-17 13:19] LABS: ALB/GLOB Ratio 0.9 RATIO (0.9-2.4); AST(SGOT) 20 U/L (15-37); Alanine Aminotransfer ALT/SGPT 24 U/L (13-56); Albumin, Serum 3.6 g/dL (3.2-5.0); Alkaline Phosphatase 104 U/L (45-117); Anion Gap 7 (5-15); BUN 25 mg/dL (7-18); Calcium,Total 8.7 mg/dL (8.5-10.1); Chloride 101 mmol/L (98-107); Creatinine, Serum 1.19 mg/dL (0.55-1.02); EST Glomerular Filtration Rate 47 mL/min (>60); Est Glom Filt Rate - Afr Amer 57 mL/min (>60); Ferritin 179 ng/mL (8-252); Glucose 104 mg/dL (74-106); Iron 143 ug/dL (50-170); Potassium 3.4 mmol/L (3.5-5.1); Protein, Total 7.6 g/dL (6.4-8.2); Sodium Level 142 mmol/L (136-145)
[2019-05-17 13:20] LABS: Vitamin D,25 Hydroxy 28.3 ng/mL (29.95-100.01)
== END ==
LOC: LAB.FUTURE 11:21 → MTLAB 11:25
PROVIDERS: Family Provider Family Medicine; PCP Family Medicine; Referring Provider Internal Medicine Endocrinology, Diabetes & Metabolism; Visit Provider Internal Medicine Endocrinology, Diabetes & Metabolism
DX: E03.8 Other specified hypothyroidism (principal); E55.9 Vitamin D deficiency, unspecified; D50.9 Iron deficiency anemia, unspecified
CPT/HCPCS: 36415; 80053; 82306; 82728; 83540

== ENCOUNTER → 2019-06-02 10:02 | Outpatient (CLI) | payer MEDICARE, OTHER, SELFPAY ==
[2019-04-19 15:18] VITALS: BMI 43.7
[2019-06-02 12:32] LABS: ALB/GLOB Ratio 1.1 RATIO (0.9-2.4); AST(SGOT) 28 U/L (15-37); Alanine Aminotransfer ALT/SGPT 18 U/L (13-56); Alkaline Phosphatase 89 U/L (45-117); Anion Gap 8 (5-15); BUN 22 mg/dL (7-18); BUN/Creat Ratio 18.6 RATIO (10-20); Calcium,Total 9.5 mg/dL (8.5-10.1); Chloride 109 mmol/L (98-107); Creatinine, Serum 1.18 mg/dL (0.55-1.02); EST Glomerular Filtration Rate 48 mL/min (>60); Est Glom Filt Rate - Afr Amer 58 mL/min (>60); Globulin 3.7 g/dL (2.2-4.2); Glucose 119 mg/dL (74-106); Potassium 4.2 mmol/L (3.5-5.1); Protein, Total 7.7 g/dL (6.4-8.2); Sodium Level 141 mmol/L (136-145)
== END ==
PROVIDERS: Family Provider Family Medicine; PCP Family Medicine; Referring Provider Internal Medicine Endocrinology, Diabetes & Metabolism; Visit Provider Internal Medicine Endocrinology, Diabetes & Metabolism
DX: E03.8 Other specified hypothyroidism (principal)
CPT/HCPCS: 36415; 80053

== ENCOUNTER → 2019-11-09 11:41 | Outpatient (CLI) | payer MEDICARE, OTHER, SELFPAY ==
[2019-04-19 15:18] VITALS: BMI 43.7
[2019-11-09 15:23] LABS: Absolute Lymphocyte Count 2.57 X10^3/uL (0.83-4.51); Absolute Neutrophil Count 3.2 X10^3/uL (2.0-7.7); Basophil# 0.03 X10^3/uL; Basophil% 0.5 % (0-1); Eosinophil# 0.29 X10^3/uL; Eosinophils% 4.4 % (0-5); Hematocrit 40.3 % (37-47); Hemoglobin 13.1 g/dL (12.0-15.0); Lymphocyte # 2.57 X10^3/ul (4.0); Mean Corp Hgb Conc 32.5 g/dL (32-36); Mean Corpuscular Volume 101.5 fL (81-99); Mean Platelet Vol. 9.4 fl (6.2-12.0); Monocyte# 0.43 X10^3/uL; Monocyte% 6.5 % (0-10); NRBC Flagged by Analyzer 0 % (0-5); Neutrophil # 3.24 X10^3/uL (2.7-7.7); Neutrophil % 49.1 % (47-70); Platelet Count 205 K/mm3 (150-450); RBC Distribution Width CV 13.9 % (11.6-14.6); RBC Distribution Width SD 51.8 fl (35.1-43.9); Red Blood Count 3.97 M/mm3 (4.2-5.4); White Blood Count 6.6 K/mm3 (4.4-11.0)
[2019-11-09 15:48] LABS: AST(SGOT) 35 U/L (15-37); Alanine Aminotransfer ALT/SGPT 38 U/L (13-56); Albumin, Serum 3.7 g/dL (3.2-5.0); Alkaline Phosphatase 101 U/L (45-117); Anion Gap 7 (5-15); BUN 15 mg/dL (7-18); BUN/Creat Ratio 15.4 RATIO (10-20); Bilirubin, Direct 0.12 mg/dL (0.00-0.30); Calcium,Total 9.2 mg/dL (8.5-10.1); Chloride 104 mmol/L (98-107); Cholesterol 181 mg/dL (200); Creatinine, Serum 0.97 mg/dL (0.55-1.02); EST Glomerular Filtration Rate 60 mL/min (>60); Est Glom Filt Rate - Afr Amer 72 mL/min (>60); Globulin 3.6 g/dL (2.2-4.2); Glucose 97 mg/dL (74-106); High Density Lipoprotein 50 mg/dL; Iron 106 ug/dL (50-170); Potassium 4.2 mmol/L (3.5-5.1); Protein, Total 7.3 g/dL (6.4-8.2); Sodium Level 140 mmol/L (136-145); Thyroid Stim Hormone (TSH) 4.55 uIU/mL (0.358-3.74); Triglycerides 198 mg/dL; Very Low Density Lipoprotein 40 mg/dL (5-40)
== END ==
PROVIDERS: PCP Family Medicine; Referring Provider Internal Medicine Cardiovascular Disease; Visit Provider Internal Medicine Cardiovascular Disease
DX: R53.81 Other malaise (principal); R53.83 Other fatigue; E78.00 Pure hypercholesterolemia, unspecified; E78.5 Hyperlipidemia, unspecified
CPT/HCPCS: 36415; 80053; 80061; 82248; 83540; 84443; 85025

== ENCOUNTER → 2019-11-24 15:49 | Outpatient (CLI) | payer MEDICARE, OTHER, SELFPAY ==
[2019-04-19 15:18] VITALS: BMI 43.7
[2019-11-24 17:42] LABS: Vitamin D,25 Hydroxy 39.9 ng/mL
[2019-11-24 17:43] LABS: AST(SGOT) 25 U/L (15-37); Alanine Aminotransfer ALT/SGPT 37 U/L (13-56); Albumin, Serum 3.8 g/dL (3.2-5.0); Alkaline Phosphatase 89 U/L (45-117); Anion Gap 6 (5-15); BUN 18 mg/dL (7-18); Calcium,Total 9.1 mg/dL (8.5-10.1); Chloride 105 mmol/L (98-107); Creatinine, Serum 1.06 mg/dL (0.55-1.02); EST Glomerular Filtration Rate 54 mL/min (>60); Est Glom Filt Rate - Afr Amer 65 mL/min (>60); Glucose 121 mg/dL (74-106); Potassium 3.5 mmol/L (3.5-5.1); Protein, Total 7.8 g/dL (6.4-8.2); Sodium Level 141 mmol/L (136-145)
== END ==
PROVIDERS: PCP Family Medicine; Referring Provider Internal Medicine Endocrinology, Diabetes & Metabolism; Visit Provider Internal Medicine Endocrinology, Diabetes & Metabolism
DX: E03.8 Other specified hypothyroidism (principal)
CPT/HCPCS: 36415; 80053; 82306

== ENCOUNTER → 2019-12-15 14:57 | Outpatient (CLI) | payer MEDICARE, OTHER, SELFPAY ==
[2019-12-14 15:35] VITALS: BMI 44.2
--- NOTE | 2019-12-15 15:01 | RAD_ITS ---
STUDY: X-RAY - CERVICAL SPINE REASON FOR EXAM: Female, 74 years old. Cervical pain. TECHNIQUE: 5 view(s) of the cervical spine were obtained. COMPARISON: None FINDINGS: There are degenerative changes of the anterior atlantoaxial articulation. Normal odontoid process. Normal cervical lordosis. There is diffuse demineralization of the cervical spine. There is multilevel disc space narrowing and endplate spondylosis. There is no evidence of acute fracture or loss of vertebral axial height. There is maintenance of normal alignment. There is no significant neural foraminal narrowing. The soft tissue structures are unremarkable. RAD/Cerv Spine 4 or 5 Views IMPRESSION: Degenerative changes of the cervical spine. Electronically Signed: Arun Miguel DO at 9:24 EDT Tel [phone], Service support ,
== END ==
PROVIDERS: PCP Family Medicine; Referring Provider Family Medicine; Visit Provider Family Medicine
DX: M54.2 Cervicalgia (principal)
CPT/HCPCS: 72050

== ENCOUNTER → 2020-01-05 | Outpatient (CLI) | payer MEDICARE, OTHER, SELFPAY ==
[2019-12-14 15:35] VITALS: BMI 44.2
[2020-01-05 18:00] LABS: Thyroid Stim Hormone (TSH) 0.33 uIU/mL (0.358-3.74)
== END | disposition home or self-care (01) ==
PROVIDERS: PCP Family Medicine; Referring Provider Internal Medicine Endocrinology, Diabetes & Metabolism; Visit Provider Internal Medicine Endocrinology, Diabetes & Metabolism
DX: E03.8 Other specified hypothyroidism (principal)
CPT/HCPCS: 36415; 84443

== ENCOUNTER → 2020-03-06 08:32 | Outpatient (CLI) | payer MEDICARE, OTHER, SELFPAY ==
[2019-12-14 15:35] VITALS: BMI 44.2
[2020-03-06 11:08] LABS: Thyroid Stim Hormone (TSH) 1.15 uIU/mL (0.358-3.74)
== END ==
PROVIDERS: PCP Family Medicine; Referring Provider Internal Medicine Endocrinology, Diabetes & Metabolism; Visit Provider Internal Medicine Endocrinology, Diabetes & Metabolism
DX: E03.8 Other specified hypothyroidism (principal)
CPT/HCPCS: 36415; 84443

== ENCOUNTER → 2020-05-21 13:59 | Outpatient (CLI) | payer MEDICARE, OTHER, SELFPAY ==
[2020-05-13 13:23] VITALS: BMI 43.4
[2020-05-21 15:17] LABS: Hematocrit 40.2 % (37-47); Hemoglobin 13.2 g/dL (12.0-15.0); Mean Corp Hgb Conc 32.8 g/dL (32-36); Mean Corpuscular Volume 103.6 fL (81-99); Mean Platelet Vol. 9.6 fl (6.2-12.0); Platelet Count 215 K/mm3 (150-450); RBC Distribution Width SD 50.1 fl (35.1-43.9); Red Blood Count 3.88 M/mm3 (4.2-5.4); White Blood Count 6.3 K/mm3 (4.4-11.0)
[2020-05-21 15:37] LABS: AST(SGOT) 22 U/L (15-37); Alanine Aminotransfer ALT/SGPT 22 U/L (13-56); Albumin, Serum 3.8 g/dL (3.2-5.0); Alkaline Phosphatase 95 U/L (45-117); Bilirubin, Direct 0.13 mg/dL (0.00-0.30); Cholesterol 148 mg/dL (200); Globulin 3.8 g/dL (2.2-4.2); High Density Lipoprotein 53 mg/dL; Protein, Total 7.6 g/dL (6.4-8.2); Triglycerides 157 mg/dL; Very Low Density Lipoprotein 31 mg/dL (5-40)
[2020-05-21 16:02] LABS: Anion Gap 6 (5-15); BUN 17 mg/dL (7-18); Calcium,Total 9.2 mg/dL (8.5-10.1); Chloride 106 mmol/L (98-107); Creatinine, Serum 1.06 mg/dL (0.55-1.02); EST Glomerular Filtration Rate 54 mL/min (>60); Est Glom Filt Rate - Afr Amer 65 mL/min (>60); Glucose 95 mg/dL (74-106); Magnesium 1.6 mg/dL (1.6-2.6); Potassium 3.9 mmol/L (3.5-5.1); Sodium Level 143 mmol/L (136-145)
== END ==
PROVIDERS: Physician Assistant Medical; PCP Family Medicine; Referring Provider Internal Medicine Cardiovascular Disease; Visit Provider Internal Medicine Cardiovascular Disease
DX: E78.00 Pure hypercholesterolemia, unspecified (principal); E78.5 Hyperlipidemia, unspecified; I25.10 Atherosclerotic heart disease of native coronary artery without angina pectoris; I47.1 Supraventricular tachycardia; R00.2 Palpitations; I10 Essential (primary) hypertension; I48.91 Unspecified atrial fibrillation; Z95.5 Presence of coronary angioplasty implant and graft
CPT/HCPCS: 36415; 80048; 80061; 80076; 83735; 85027

== ENCOUNTER → 2020-05-27 13:10 | Outpatient (CLI) | payer MEDICARE, OTHER, SELFPAY ==
[2020-05-13 13:23] VITALS: BMI 43.4
--- NOTE | 2020-05-27 13:11 | MRI_ITS ---
STUDY: MRI CERVICAL SPINE WITHOUT CONTRAST REASON FOR EXAM: Female, 74 years old. neck pain WHEN TURNING HEAD TO THE RIGHT, DDD TECHNIQUE: Standardized fat and water weighted pulse sequences were obtained in the sagittal and axial planes. COMPARISON: X-ray 12/15/2019 FINDINGS: Normal foramen magnum and brainstem-cervical cord junction. Normal craniovertebral junction. Normal anterior atlantoaxial articulation. Normal odontoid process. Normal cervical lordosis. Normal vertebral bodies and posterior osseous elements. C2-3: Normal endplates. Normal disc height, signal and morphology. Normal central canal and intervertebral neural foramina. C3-4: Mild broad disc osteophyte complex produces mild spinal stenosis and mild bilateral neural foraminal stenosis. C4-5: Normal endplates. Normal disc height, signal and morphology. Normal central canal and intervertebral neural foramina. C5-6: Mild broad disc osteophyte complex and bilateral uncovertebral hypertrophy produces mild spinal stenosis and mild bilateral neural foraminal stenosis. C6-7: Mild broad disc osteophyte complex and bilateral uncovertebral hypertrophy produces mild spinal stenosis and mild bilateral neural foraminal stenosis. C7-T1: Mild broad disc osteophyte complex and bilateral vertebral hypertrophy produces mild spinal stenosis and mild bilateral neural foraminal stenosis. Normal cervical cord. Normal visualized soft tissue structures. MRI/Spine Cervical (Routine) IMPRESSION: Mild diffuse degenerative disc disease. Electronically Signed: Tone Bunch MD at 14:29 EST Tel , Service support ,
== END ==
PROVIDERS: PCP Family Medicine; Referring Provider Orthopaedic Surgery; Visit Provider Orthopaedic Surgery
DX: M54.2 Cervicalgia (principal)
CPT/HCPCS: 72141

== ENCOUNTER 2020-09-16 15:27 | Outpatient (RCR) | payer MEDICARE, OTHER, SELFPAY ==
[2020-09-11 16:07] VITALS: BMI 44.9
== END 2020-09-16 23:59 ==
LOC: IMMUN 15:27
PROVIDERS: PCP Family Medicine; Visit Provider Family Medicine
DX: Z23 Encounter for immunization (principal)
CPT/HCPCS: 0011A; 0012A

== ENCOUNTER → 2020-11-26 16:07 | Outpatient (CLI) | payer MEDICARE, OTHER, SELFPAY ==
[2020-11-26 09:51] VITALS: BMI 43.4
[2020-11-26 18:31] LABS: AST(SGOT) 18 U/L (15-37); Alanine Aminotransfer ALT/SGPT 21 U/L (13-56); Albumin, Serum 3.8 g/dL (3.2-5.0); Alkaline Phosphatase 108 U/L (45-117); Anion Gap 9 (5-15); BUN 22 mg/dL (7-18); BUN/Creat Ratio 22.2 RATIO (10-20); Calcium,Total 8.9 mg/dL (8.5-10.1); Chloride 103 mmol/L (98-107); Creatinine, Serum 0.99 mg/dL (0.55-1.02); EST Glomerular Filtration Rate 58 mL/min (>60); Est Glom Filt Rate - Afr Amer 70 mL/min (>60); Globulin 3.8 g/dL (2.2-4.2); Glucose 93 mg/dL (74-106); Potassium 3.5 mmol/L (3.5-5.1); Protein, Total 7.6 g/dL (6.4-8.2); Sodium Level 143 mmol/L (136-145); Thyroid Stim Hormone (TSH) 0.65 uIU/mL (0.358-3.74)
[2020-11-26 18:33] LABS: Vitamin D,25 Hydroxy 55.7 ng/mL
== END ==
PROVIDERS: PCP Family Medicine; Referring Provider Internal Medicine Endocrinology, Diabetes & Metabolism; Visit Provider Internal Medicine Endocrinology, Diabetes & Metabolism
DX: E03.8 Other specified hypothyroidism (principal); E55.9 Vitamin D deficiency, unspecified
CPT/HCPCS: 36415; 80053; 82306; 84443

== ENCOUNTER → 2021-01-07 15:15 | Outpatient (CLI) | payer MEDICARE, OTHER, SELFPAY ==
[2020-12-23 11:42] VITALS: BMI 43.4
[2021-01-07 18:19] LABS: Thyroid Stim Hormone (TSH) 1.63 uIU/mL (0.358-3.74)
== END ==
PROVIDERS: PCP Family Medicine
DX: E03.8 Other specified hypothyroidism (principal)
CPT/HCPCS: 36415; 84443

== ENCOUNTER → 2021-04-23 11:36 | Outpatient (CLI) | payer MEDICARE, OTHER, SELFPAY ==
[2021-04-23 15:40] LABS: T4 Free Direct 0.69 ng/dL (0.76-1.46); Thyroid Stim Hormone (TSH) 2.27 uIU/mL (0.358-3.74)
[2021-04-23 15:52] LABS: AST(SGOT) 17 U/L (15-37); Alanine Aminotransfer ALT/SGPT 13 U/L (13-56); Albumin, Serum 3.6 g/dL (3.2-5.0); Alkaline Phosphatase 113 U/L (45-117); Bilirubin, Direct 0.15 mg/dL (0.00-0.30); Cholesterol 128 mg/dL (200); Globulin 4.2 g/dL (2.2-4.2); High Density Lipoprotein 49 mg/dL; Protein, Total 7.8 g/dL (6.4-8.2); Triglycerides 143 mg/dL; Very Low Density Lipoprotein 29 mg/dL (5-40)
== END ==
PROVIDERS: Internal Medicine Cardiovascular Disease; PCP Family Medicine
DX: E03.8 Other specified hypothyroidism (principal); E78.00 Pure hypercholesterolemia, unspecified; E78.5 Hyperlipidemia, unspecified
CPT/HCPCS: 36415; 80061; 80076; 84439; 84443

== ENCOUNTER → 2021-05-20 11:37 | Outpatient (CLI) | payer MEDICARE, OTHER, SELFPAY ==
[2021-05-20 15:53] LABS: Anion Gap 7 (5-15); BUN 15 mg/dL (7-18); BUN/Creat Ratio 15.6 RATIO (10-20); Calcium,Total 8.9 mg/dL (8.5-10.1); Chloride 107 mmol/L (98-107); Creatinine, Serum 0.96 mg/dL (0.55-1.02); EST Glomerular Filtration Rate 60 mL/min (>60); Est Glom Filt Rate - Afr Amer 73 mL/min (>60); Glucose 98 mg/dL (74-106); Magnesium 1.7 mg/dL (1.6-2.6); Potassium 4.5 mmol/L (3.5-5.1); Sodium Level 142 mmol/L (136-145)
== END ==
PROVIDERS: PCP Family Medicine; Referring Provider Physician Assistant Medical; Visit Provider Physician Assistant Medical
DX: I48.91 Unspecified atrial fibrillation (principal); I47.1 Supraventricular tachycardia
CPT/HCPCS: 36415; 80048; 83735

== ENCOUNTER → 2021-05-22 11:47 | Outpatient (CLI) | payer MEDICARE, OTHER, SELFPAY ==
[2021-05-22 15:16] LABS: Absolute Lymphocyte Count 2.57 X10^3/uL (0.83-4.51); Absolute Neutrophil Count 4.5 X10^3/uL (2.0-7.7); Basophil# 0.03 X10^3/uL; Basophil% 0.4 % (0-1); Eosinophil# 0.17 X10^3/uL; Eosinophils% 2.2 % (0-5); Hematocrit 38.4 % (37-47); Hemoglobin 12.6 g/dL (12.0-15.0); Lymphocyte # 2.57 X10^3/ul (0.83-4.51); Lymphocyte % 33.2 % (19-41); Mean Corp Hgb Conc 32.8 g/dL (32-36); Mean Corpuscular Hgb 34.2 pg (27.0-32.0); Mean Corpuscular Volume 104.3 fL (81-99); Mean Platelet Vol. 9.8 fl (6.2-12.0); Monocyte# 0.46 X10^3/uL; Monocyte% 5.9 % (0-10); NRBC Flagged by Analyzer 0 % (0-5); Neutrophil # 4.49 X10^3/uL (2.7-7.7); Platelet Count 216 K/mm3 (150-450); RBC Distribution Width CV 12.9 % (11.6-14.6); RBC Distribution Width SD 49.9 fl (35.1-43.9); Red Blood Count 3.68 M/mm3 (4.2-5.4); White Blood Count 7.7 K/mm3 (4.4-11.0)
== END ==
PROVIDERS: PCP Family Medicine; Referring Provider Physician Assistant Medical; Visit Provider Physician Assistant Medical
DX: I25.10 Atherosclerotic heart disease of native coronary artery without angina pectoris (principal)
CPT/HCPCS: 36415; 85025

== ENCOUNTER → 2021-05-30 11:24 | Outpatient (CLI) | payer MEDICARE, OTHER, SELFPAY ==
[2021-05-30 15:19] LABS: PTHIN 46.8 pg/mL (18.4-80.1)
[2021-05-30 15:22] LABS: ALB/GLOB Ratio 0.9 RATIO (0.9-2.4); AST(SGOT) 31 U/L (15-37); Alanine Aminotransfer ALT/SGPT 24 U/L (13-56); Albumin, Serum 3.6 g/dL (3.2-5.0); Alkaline Phosphatase 77 U/L (45-117); Anion Gap 7 (5-15); BUN 24 mg/dL (7-18); BUN/Creat Ratio 24.5 RATIO (10-20); Calcium,Total 9.3 mg/dL (8.5-10.1); Chloride 108 mmol/L (98-107); Creatinine, Serum 0.98 mg/dL (0.55-1.02); EST Glomerular Filtration Rate 59 mL/min (>60); Est Glom Filt Rate - Afr Amer 71 mL/min (>60); Globulin 3.8 g/dL (2.2-4.2); Glucose 83 mg/dL (74-106); Potassium 3.9 mmol/L (3.5-5.1); Protein, Total 7.4 g/dL (6.4-8.2); Sodium Level 142 mmol/L (136-145); T4 Free Direct 0.68 ng/dL (0.76-1.46); Thyroid Stim Hormone (TSH) 3.29 uIU/mL (0.358-3.74)
== END ==
PROVIDERS: PCP Family Medicine
DX: E03.8 Other specified hypothyroidism (principal); M85.89 Other specified disorders of bone density and structure, multiple sites
CPT/HCPCS: 36415; 80053; 83970; 84439; 84443

== ENCOUNTER → 2021-06-03 06:10 | Outpatient (CLI) | payer MEDICARE, OTHER, SELFPAY ==
--- NOTE | 2021-06-03 08:41 | STRESSREP ---
Stress Test Report Date: 06-03-2021 Procedure: Pharmacologic stress nuclear imaging study Indications: CAD, PCI, atrial fibrillation, status post EPS/RFA Consent: Per the patient Procedure: The patient underwent pharmacologic (Regadenoson 0.4mg ) evaluation with a peak heart rate of 78 beats per minute (53%predicted maximal heart rate) and a peak blood pressure of 148/82 mmHg. The baseline ECG demonstrated sinus bradycardia; nonspecific T wave abnormality. The peak pharmacologic ECG demonstrated no obvious ECG changes. There were no cardiac dysrhythmias pretest, during pharmacologic infusion, or recovery. There was no complaint of chest discomfort during pharmacologic infusion or recovery. The examination was discontinued secondary to completion of protocol. Impression: 1. Pharmacologic (Regadenoson) evaluation 2. Peak pharmacologic ECG with continued nonspecific T wave abnormality with no obvious ECG changes. 3. There were no cardiac dysrhythmias pretest, during pharmacologic infusion, or recovery. 4. Nuclear images pending Myocardial perfusion imaging study: Technique: The patient was injected with millicuries of technetium 99m Cardiolite and subsequently rest SPECT Cardiolite nuclear imaging was obtained in the horizontal long, vertical long, and short axis views. The patient underwent pharmacologic (Regadenoson) evaluation with a peak heart rate of 78 beats per minute (53% percent predicted maximal heart rate) and a peak blood pressure of 148/82 mmHg. The patient was injected with millicuries of technetium 99m Cardiolite and subsequently stress SPECT Cardiolite nuclear imaging was obtained in the horizontal long, vertical long, and short axis views. A gated Cardiolite study at peak stress was obtained. Interpretation: Rest and stress SPECT Cardiolite nuclear imaging status post realignment, normalization, and attenuation correction demonstrate relative uniform tracer uptake and myocardial perfusion appearing within normal limits. There is end systolic thickening and brightening. The gated Cardiolite study demonstrates myocardial thickening and inward wall motion. The reported LVEF is 69%. Impression: 1. Rest and stress SPECT Cardiolite nuclear imaging demonstrate relative uniform tracer uptake and myocardial perfusion appearing within normal limits. 2. The gated Cardiolite study reports an LVEF of 69%. This note was generated with [employer] software. It may contain incorrect words, spelling, and punctuation that were not noted in checking the note before signing.
== END ==
PROVIDERS: PCP Family Medicine; Referring Provider Physician Assistant Medical; Visit Provider Physician Assistant Medical
DX: R07.9 Chest pain, unspecified (principal)
CPT/HCPCS: 78452; 93017; A9500; A4216; J2785

== ENCOUNTER → 2021-10-20 11:05 | Outpatient (CLI) | payer MEDICARE, OTHER, SELFPAY ==
[2021-10-20 16:01] LABS: Anion Gap 6 (5-15); BUN 20 mg/dL (7-18); BUN/Creat Ratio 19.6 RATIO (10-20); Calcium,Total 8.9 mg/dL (8.5-10.1); Chloride 105 mmol/L (98-107); Creatinine, Serum 1.02 mg/dL (0.55-1.02); EST Glomerular Filtration Rate 56 mL/min (>60); Est Glom Filt Rate - Afr Amer 68 mL/min (>60); Glucose 117 mg/dL (74-106); Potassium 3.5 mmol/L (3.5-5.1); Sodium Level 141 mmol/L (136-145); T4 Free Direct 0.82 ng/dL (0.76-1.46); Thyroid Stim Hormone (TSH) 1.27 uIU/mL (0.358-3.74)
[2021-10-20 16:25] LABS: AST(SGOT) 25 U/L (15-37); Alanine Aminotransfer ALT/SGPT 25 U/L (13-56); Albumin, Serum 3.8 g/dL (3.2-5.0); Alkaline Phosphatase 96 U/L (45-117); Bilirubin, Direct 0.14 mg/dL (0.00-0.30); Cholesterol 138 mg/dL (200); Globulin 3.7 g/dL (2.2-4.2); High Density Lipoprotein 50 mg/dL; Protein, Total 7.5 g/dL (6.4-8.2); Triglycerides 135 mg/dL; Very Low Density Lipoprotein 27 mg/dL (5-40)
== END ==
PROVIDERS: Internal Medicine Cardiovascular Disease; PCP Family Medicine
DX: E03.8 Other specified hypothyroidism (principal)
CPT/HCPCS: 36415; 80048; 80061; 80076; 84439; 84443

== ENCOUNTER 2021-10-31 15:14 | Outpatient (CLI) | payer MEDICARE, OTHER, SELFPAY ==
[2021-10-31 16:26] LABS: Magnesium 1.8 mg/dL (1.6-2.6)
== END 2021-10-31 23:59 | disposition home or self-care (01) ==
LOC: LAB 15:15
PROVIDERS: PCP Family Medicine; Visit Provider Physician Assistant Medical
DX: I48.91 Unspecified atrial fibrillation (principal)
CPT/HCPCS: 36415; 83735

== ENCOUNTER → 2022-04-06 | Outpatient (CLI) | payer MEDICARE, OTHER, SELFPAY ==
[2022-04-06 19:06] LABS: Vitamin D,25 Hydroxy 65.2 ng/mL
[2022-04-06 19:21] LABS: ALB/GLOB Ratio 0.8 RATIO (0.9-2.4); AST(SGOT) 32 U/L (15-37); Alanine Aminotransfer ALT/SGPT 37 U/L (13-56); Albumin, Serum 3.3 g/dL (3.2-5.0); Alkaline Phosphatase 95 U/L (45-117); Anion Gap 8 (5-15); BUN 28 mg/dL (7-18); BUN/Creat Ratio 28.8 RATIO (10-20); Calcium,Total 8.7 mg/dL (8.5-10.1); Chloride 102 mmol/L (98-107); Creatinine, Serum 0.97 mg/dL (0.55-1.02); EST Glomerular Filtration Rate 59 mL/min (>60); Est Glom Filt Rate - Afr Amer 72 mL/min (>60); Glucose 117 mg/dL (74-106); Potassium 3.3 mmol/L (3.5-5.1); Protein, Total 7.3 g/dL (6.4-8.2); Sodium Level 141 mmol/L (136-145); T4 Free Direct 0.76 ng/dL (0.76-1.46); Thyroid Stim Hormone (TSH) 1.43 uIU/mL (0.358-3.74)
== END | disposition home or self-care (01) ==
PROVIDERS: PCP Family Medicine
DX: E03.8 Other specified hypothyroidism (principal); E55.9 Vitamin D deficiency, unspecified
CPT/HCPCS: 36415; 80053; 82306; 84439; 84443

== ENCOUNTER → 2022-04-23 | Outpatient (CLI) | payer MEDICARE, OTHER, SELFPAY ==
[2022-04-23 15:38] LABS: Anion Gap 8 (5-15); BUN 25 mg/dL (7-18); BUN/Creat Ratio 18.8 RATIO (10-20); Calcium,Total 9.7 mg/dL (8.5-10.1); Chloride 104 mmol/L (98-107); Creatinine, Serum 1.33 mg/dL (0.55-1.02); EST Glomerular Filtration Rate 41 mL/min (>60); Est Glom Filt Rate - Afr Amer 50 mL/min (>60); Glucose 97 mg/dL (74-106); Potassium 3.9 mmol/L (3.5-5.1); Sodium Level 142 mmol/L (136-145)
== END | disposition home or self-care (01) ==
LOC: MTLAB 13:16
PROVIDERS: PCP Family Medicine; Referring Provider Internal Medicine Cardiovascular Disease; Visit Provider Internal Medicine Cardiovascular Disease
DX: E87.6 Hypokalemia (principal)
CPT/HCPCS: 36415; 80048

== ENCOUNTER → 2022-07-06 | Outpatient (CLI) | payer MEDICARE, OTHER, SELFPAY | END | disposition home or self-care (01) | LOC: LABSPEC 11:03 | PROVIDERS: PCP Family Medicine; Visit Provider Family Medicine | DX: R05.9 Cough, unspecified (principal) | CPT/HCPCS: 87070; 87205 ==